=== PATIENT | female | born 1985 | race Caucasian/White ===

== ENCOUNTER → 2022-09-07 13:00 | Outpatient (BNVA) | payer OTHER, SELFPAY | PROVIDERS: Family Provider Family Medicine; PCP Family Medicine; Visit Provider Clinical Nurse Specialist Adult Health | DX: Z00.00 Encounter for general adult medical examination without abnormal findings (principal) | CPT/HCPCS: 87624 ==

== ENCOUNTER 2023-10-22 09:58 | Outpatient (CLI) | payer OTHER, SELFPAY ==
--- NOTE | 2023-10-22 10:09 | MM_ITS ---
WS: [id number] DIAGNOSTIC BILATERAL DIGITAL BREAST TOMOSYNTHESIS MAMMOGRAPHY WITH CAD HISTORY: Bilateral BR TENDERNESS COMPARISON: None available. TECHNIQUE: Bilateral craniocaudad, mediolateral oblique, and mediolateral views are submitted with to mosynthesis and SM. Spot compression bilateral MLO projections. Computer aided detection utilized. Breast composition: The breasts are heterogeneously dense, which may obscure small masses. Markers ar e placed along the axillary tails in the area of pain. No masses or distortion. Small benign calcific ations in each breast. Bilateral breast ultrasound, limited. Palpable areas and areas of tenderness towards the axillary tails correspond to benign mammary lymph nodes. No masses otherwise identified. IMPRESSION: MM/[place] [id number] BI-RADS: 2-Benign FOLLOW UP: 1 Year Follow-up
== END 2023-10-22 09:59 | disposition home or self-care (01) ==
PROVIDERS: Family Provider Family Medicine; PCP Family Medicine; Visit Provider Nurse Practitioner Family
DX: N64.4 Mastodynia (principal)
CPT/HCPCS: 76642; 77062; G0279

== ENCOUNTER 2024-09-19 22:18 | Observation (INO) | payer BC, SELFPAY ==
[2024-09-19 22:32] VITALS: BP 131/87; PULSE 64; RESP 16; TEMP 36.9; O2SAT 100
--- NOTE | 2024-09-19 22:59 | XRR_ITS ---
PROCEDURE INFORMATION: Exam: XR Chest Exam date and time: 09/19/2024 11:05 PM Age: 38 years old Clinical indication: Chest pressure; Patient HX: Chest pain TECHNIQUE: Imaging protocol: Radiologic exam of the chest. Views: 1 view. COMPARISON: No relevant prior studies available. FINDINGS: Lungs: Mild bibasilar opacities. Pleural spaces: Unremarkable. No pleural effusion. No pneumothorax. Heart/Mediastinum: Unremarkable. No cardiomegaly. Diaphragm: Mild asymmetric elevation of the right hemidiaphragm. Bones/joints: Unremarkable. XR/XR chest 1V portable [id number] IMPRESSION: Mild bibasilar opacities favor atelectasis. Infiltrate considered less likely but not entirely excluded in the correct clinical setting.
--- NOTE | 2024-09-19 22:59 | ECG_ITS ---
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 Measurements Intervals [place] Rate: 68 P: 62 [place]: 162 QRS: 24 QRSD: 94 T: 44 QT: 403 QTc: 430 Interpretive Statements SINUS RHYTHM LOW QRS VOLTAGE IN PRECORDIAL LEADS [QRS DEFLECTION < 1.0 mV IN CHEST LEADS] MODERATE ST DEPRESSION [0.05+ mV ST DEPRESSION] Compared to ECG 04/12/2019 13:11:58 ST (T wave) deviation now present Electronically Signed On 09-20-2024 20:24:18 CEMETERY LABORER by Marissa Anderson M.D. [id number]
[2024-09-19 23:21] LABS: Basophils # 0.1 10^3/uL (0.0-0.1); Basophils % 0.9 %; Eosinophils # 0.3 10^3/uL (0.0-0.8); Eosinophils % 3.7 %; Hematocrit 39.8 % (36-47); Lymphocytes # 2.4 10^3/uL (0.8-4.8); Lymphocytes % 35.2 %; Mean Corpuscular HGB Conc 34.2 g/dL (30-55); Mean Corpuscular Hemoglobin 30.4 pg (27-33); Mean Corpuscular Volume 88.8 fl (85-98); Mean Platelet Volume 10.3 fL (7.4-10.4); Monocytes # 0.7 10^3/uL (0.2-0.9); Monocytes % 10.3 %; Neutrophils # 3.39 10^3/uL (1.8-7.7); Neutrophils % 49.8 %; Nucleated Red Blood Cells % 0 %; Platelet Count 218 10^3/cmm (157-399); Red Blood Count 4.48 10^6/uL (3.85-5.65); White Blood Count 6.81 10^3/uL (3.29-11.43)
[2024-09-19 23:38] LABS: Troponin(5th) Baseline 17 ng/L (0-10)
[2024-09-19] MEDS: sodium chloride 0.9% 1,000 ML 999 ML IV (23:41)
[2024-09-19 23:42] LABS: HCG Qualitative Urine. Negative (Negative)
[2024-09-19 23:45] LABS: Bilirubin Urine Negative (Negative); Blood Urine 1+ (Negative); Glucose Urine UA Negative (Normal); Ketones Urine Negative (Negative); Leukocyte Esterase Urine Negative (Negative); Nitrate Urine Negative (Negative); Protein Urine Negative (Negative); Specific Gravity, Urine 1.005 (1.005-1.030); Urine Appearance Clear (CLEAR); Urine Color Yellow (Yellow); Urobilinogen Urine 0.2 mg/dL (Negative)
[2024-09-19 23:47] LABS: Add Urine Microscopic? YES; Bacteria Urine None Seen /hpf; Hyaline Casts Urine 0-4 /lpf; Squamous Epithelial Cell Urine 0-5 /hpf (0-5); WBC Urine 0-5 /hpf (0-5)
[2024-09-19 23:53] LABS: Amphetamines Screen Urine Negative (Negative); Barbiturates Screen Urine Negative (Negative); Benzodiazepines Screen Urine Negative (Negative); Cocaine Screen Urine Negative (Negative); Opiate Screen Urine Negative (Negative); PCP Screen Urine Negative (Negative); THC Screen Urine Negative (Negative)
[2024-09-19 23:54] LABS: Alanine Aminotransferase 27 U/L (0-33); Albumin Level 4.8 g/dL (3.5-5.2); Alkaline Phosphatase 62 U/L (35-105); Anion Gap 13.6 (5-19); Aspartate Amino Transferase 23 U/L (0-32); Blood Urea Nitrogen 13 mg/dL (6-20); Calcium 9.3 mg/dL (8.5-10.5); Carbon Dioxide 26 mmol/L (22-29); Chloride 104 mmol/L (98-107); Creatinine Clr Calc Pharmacy 82.4928; Globulin 2.3 g/dL (1.3-4.6); Glomerular Filtration Rate 61.7 mL/min (90-130); Glucose 122 mg/dL (65-115); Lipase 37 U/L (13-60); NT Pro B Type Natriuretic Pept 50 pg/mL (0-125); Osmolality Calculated 291 mOsm/kg (285-295); Potassium 3.6 mmol/L (3.5-5.1); Sodium 140 mmol/L (136-145); Total Bilirubin 0.5 mg/dL (0.15-1.2); Total Protein 7.1 g/dL (6.6-8.7)
[2024-09-20] VITALS (98 sets, daily range): BP systolic 84–131; BP diastolic 50–91; PULSE 52–88; RESP 11–26; TEMP 36.6–37.4; O2SAT 93–100; BMI 25.8
--- NOTE | 2024-09-20 00:20 | ED_ITS ---
Documented by User: ALLAN Davison 09/20/24 00:28 HPI - Chest Pain 2 General: Chief Complaint: Chest Pain Stated Complaint: cp irratic heart rate arm numb jaw pain Time Seen by Provider: 09/19/24 22:59 History of Present Illness: Tiki Zambrano is a 38-year-old female that presents to the emergency department with an episode of tachycardia that lasted approximately 60 seconds. Patient reports that she was sitting on the couch and felt a twinge of pain both anterior posterior chest wall on the left. She went to stretch and then she developed an arrhythmia?potation's with a heart rate in the 150s. Patient states it lasted again for approximately 60 seconds and went away. Short time later she did read developed another episode but this was much shorter. Patient denies any nausea vomiting fever or chills but does report ongoing chest pain at this time. Patient reports she had 1 episode like this during her second . She underwent 2 weeks of monitoring but nothing came of it. She also had an episode where she was bradycardic for sustained period of time. She underwent cardiac evaluation at that time to and all was normal. Associated symptoms: Reports palpitations; Deny abdominal pain, dyspnea, fever(s), nausea or vomiting Related Data Home Medications Medication Instructions Recorded Confirmed levonorgestrel 21 mcg/24 hr (up to intrauterine 09/07/22 09/07/22 8 years) 52 mg intrauterine device (Mirena) Allergies Allergy/AdvReac Type Severity Reaction Status Date / Time No Known Allergies Allergy Verified 09/19/24 22:37 Review of Systems 2 General: Reports: 10 or more systems reviewed and unremarkable except in HPI and below Const: Reports: fatigue; Denies: fever(s), chills, change in appetite, change in weight or malaise Card: Reports: chest pain, palpitations, irregular heart rhythm and dyspnea on exertion; Denies: edema, orthopnea or leg pain with exertion Resp: Denies: dyspnea, productive cough, non-productive cough, wheezing, stridor or chest congestion GI: Denies: abdominal pain, nausea, vomiting, dysphagia, diarrhea, constipation, bloating, GI cramping or hematochezia : Denies: flank pain, difficulty voiding, dysuria, urinary frequency, urinary urgency, urinary hesitancy, oliguria or hematuria Musc: Reports: back pain and other (Upper extremity heaviness and fatigue); Denies: neck pain, extremity pain, joint pain, joint swelling, joint redness, joint warmth or muscle weakness Neuro: Denies: headache(s), numbness in extremities, weakness in extremities, sensory changes, lack of coordination, difficulty walking, frequent falls, dizziness, confusion, Slurred speech present, difficulty communicating thoughts, seizure-like activity or involuntary movements Endo: Denies: polyuria, polydipsia or tired all the time Arley/Lymph: Denies: easy bruising or easy bleeding PFSH ED 2 PFSH: Family History (Updated 09/07/22 @ 12:46 by Elfego Garcia NP) Unknown Diabetes aunt type 1 diabetes Father Hypertension Denies family history of Cancer Physical Exam 2 Const: COMMON NORMALS: no acute distress, patient oriented x3 and alert G ENERAL APPEARANCE: cooperative ORIENTATION/CONSCIOUSNESS: Yes awake, Yes oriented to person, Yes oriented to place and Yes oriented to time HENMT: COMMON NORMALS: normocephalic and atraumatic HEAD & SCALP: n ormocephalic and atraumatic FACE & SINUS: normal facial exam MOUTH: Normal oral and palatal mucosa present THROAT: posterior oropharynx normal Eye: COMMON NORMALS: Equal, round and reactive pupils present, EOMs intact bilaterally, conjunctivae normal and no scleral icterus GENERAL EYE: a ppearance normal, both eyes and all related structures ALIGNMENT: Yes alignment normal PERIORBITAL: periorbital findings normal CONJUNCTIVA: Yes conjunctivae normal PUPIL: Yes Equal, round and reactive pupils present Neck/C-Spine: COMMON NORMALS: full ROM GENERAL: Yes normal visual inspection Lymph: LYMPHATIC: no lymphadenopathy noted Chest: COMMONS NORMALS: normal inspection of the chest Breast/axilla inspection: Yes no chest deformity, asymmetry, normal contours, no nodules, masses, tenderness Resp: COMMON NORMALS: normal respiratory effort, No retractions, No use of accessory muscles and clear to auscultation bilaterally EFFORT & INSPECTION: Yes able to speak in complete sentences and Yes symmetric chest movement A USCULTATION: clear to auscultation bilaterally Cardio: COMMON NORMALS: regular rate, regular rhythm and Peripheral pulses 2+ throughout RATE: regular rate RHYTHM: regular rhythm PERIPHERAL PULSES: Peripheral pulses 2+ throughout GI: COMMON NORMALS: Normal to inspection, nondistended, normoactive bowel sounds present, Soft to palpation, non-tender and No hepatosplenomegaly present INSPECTION: Yes normal to inspection AUSCULTATION: Yes normoactive bowel sounds PALPATION: Yes Soft to palpation and Yes No hepatosplenomegaly present RECTAL EXAM: deferred Extremity: COMMON NORMALS: normal to inspection GENERAL: Yes normal exam except as noted Neuro: COMMON NORMALS: patient oriented x3 SENSORIUM/ORIENTATION: Yes alert, Yes oriented to person, Yes oriented to place and Yes oriented to time CRANIAL NERVES: Yes CN normal except as noted Psych: COMMON NORMALS: mental status grossly normal, Normal thought process present, cooperative, activity/motor behavior normal, denies homicidal ideation and denies suicidal ideation THOUGHT PROCESS: Normal thought process present Skin: COMMON NORMALS: no rashes or lesions noted, no wounds and turgor normal GENERAL SKIN EXAM: no rashes or lesions noted and turgor normal Course 2 Vital Signs: Vital signs: Vital Signs Temperature 98.5 F 09/19/24 22:32 Pulse Rate 70 09/20/24 01:36 Respiratory Rate 14 09/20/24 01:36 Blood Pressure 122/91 09/20/24 01:36 Pulse Oximetry 100 09/20/24 01:36 Oxygen Delivery Me thod Room Air 09/20/24 01:58 MDM - Chest Pain Medical Decision Making Patient is a 38-year-old female that presents to the emergency department with left-sided anterior and posterior chest pain. She notes that a few days ago she had some pain in her TMJ joint. She has had a pinching sensation in her back from scoliosis. She developed this chest pain when she was stretching this evening. With this chest pain came tachycardia. Here in the emergency department we did a cardiac evaluation that included laboratory studies, chest x-ray, EKG. EKG revealed normal sinus rhythm. No ectopy, ST elevation or abnormal T wave inversion. Her heart rates in the 60s. She is on room air and satting at 100% and her blood pressure is normal. Her initial troponin was mildly elevated at 17. There is a 2-hour delta pending at this time. Her BNP is 50 which is normal. She has no leukocytosis or anemias. She has no electrolyte abnormalities. Her anion gap is 13 and her BUN is normal. She is not , does not have a urinary tract infection and has a negative urine drug screen. I reviewed the case with Dr. Patterson. At this time of any transition care to him. Patient and family updated. Lab Data 09/19/24 23:10 09/19/24 23:10 Radiology Impressions Chest X-Ray 09/19/24 22:59 IMPRESSION: Mild bibasilar opacities favor atelectasis. Infiltrate considered less likely but not entirely excluded in the correct clinical setting. Laboratory Results WBC 6.81 10^3/uL (3.29-11.43) 09/19/24 23:10 RBC 4.48 10^6/uL (3.85-5.65) 09/19/24 23:10 Hgb 13.60 g/dL (11.27-16.99) 09/19/24 23:10 Hct 39.8 % (36-47) 09/19/24 23:10 MCV 88.8 fl (85-98) 09/19/24 23:10 MCH 30.4 pg (27-33) 09/19/24 23:10 MCHC 34.2 g/dL (30-55) 09/19/24 23:10 RDW 12.0 % (12.1-15.1) L 09/19/24 23:10 Plt Count 218 10^3/cmm (157-399) 09/19/24 23:10 MPV 10.3 fL (7.4-10.4) 09/19/24 23:10 Neut % (Auto) 49.8 % 09/19/24 23:10 Lymph % (Auto) 35.2 % 09/19/24 23:10 [place] % (Auto) 10.3 % 09/19/24 23:10 Eos % (Auto) 3.7 % 09/19/24 23:10 Baso % (Auto) 0.9 % 09/19/24 23:10 Neut # (Auto) 3.39 10^3/uL (1.8-7.7) 09/19/24 23:10 Lymph # (Auto) 2.4 10^3/uL (0.8-4.8) 09/19/24 23:10 [place] # (Auto) 0.7 10^3/uL (0.2-0.9) 09/19/24 23:10 Eos # (Auto) 0.3 10^3/uL (0.0-0.8) 09/19/24 23:10 Baso # (Auto) 0.1 10^3/uL (0.0-0.1) 09/19/24 23:10 Nucleated RBC % (auto) 0 % 09/19/24 23:10 Nucleated RBCs # 0.0 /100WBC 09/19/24 23:10 D-Dimer 0.40 ug/mLFEU (0-0.59) 09/20/24 00:42 Sodium 140 mmol/L (136-145) 09/19/24 23:10 Potassium 3.6 mmol/L (3.5-5.1) 09/19/24 23:10 Chloride 104 mmol/L (98-107) 09/19/24 23:10 Carbon Dioxide 26 mmol/L (22-29) 09/19/24 23:10 Anion Gap 13.6 (5-19) 09/19/24 23:10 BUN 13 mg/dL (6-20) 09/19/24 23:10 Creatinine 1.0 mg/dL (0.5-0.9) H 09/19/24 23:10 GFR Calculation 61.7 mL/min (90-130) L 09/19/24 23:10 Glucose 122 mg/dL (65-115) H 09/19/24 23:10 Calculated Osmolality 291 mOsm/kg (285-295) 09/19/24 23:10 Calcium 9.3 mg/dL (8.5-10.5) 09/19/24 23:10 Total Bilirubin 0.5 mg/dL (0.15-1.2) 09/19/24 23:10 AST 23 U/L (0-32) 09/19/24 23:10 ALT 27 U/L (0-33) 09/19/24 23:10 Alkaline Phosphatase 62 U/L (35-105) 09/19/24 23:10 Creatine Kinase 107 U/L (26-192) 09/19/24 23:10 Troponin T Baseline 17 ng/L (0-10) H 09/19/24 23:10 Troponin T 120 Minute 65.17 ng/L (0-10) H 09/20/24 00:42 Delta Troponin T 48.17 ABS# (0-10) H* 09/20/24 00:42 NT-Pro-B Natriuret Pep 50 pg/mL (0-125) 09/19/24 23:10 Total Protein 7.1 g/dL (6.6-8.7) 09/19/24 23:10 Albumin 4.8 g/dL (3.5-5.2) 09/19/24 23:10 Globulin 2.3 g/dL (1.3-4.6) 09/19/24 23:10 Lipase 37 U/L (13-60) 09/19/24 23:10 HCG, Qual Negative (Negative) 09/19/24 23:35 Urine Color Yellow (Yellow) 09/19/24 23:35 Urine Appearance Clear (CLEAR) 09/19/24 23:35 Urine pH 7.0 (5-7) 09/19/24 23:35 Ur Specific Walker 1.005 (1.005-1.030) 09/19/24 23:35 Urine Protein Negative (Negative) 09/19/24 23:35 Urine Glucose (UA) Negative (Normal) 09/19/24 23:35 Urine Ketones Negative (Negative) 09/19/24 23:35 Urine Blood 1+ (Negative) A 09/19/24 23:35 Urine Nitrate Negative (Negative) 09/19/24 23:35 Urine Bilirubin Negative (Negative) 09/19/24 23:35 Urine Urobilinogen 0.2 mg/dL (Negative) 09/19/24 23:35 Ur Leukocyte Esterase Negative (Negative) 09/19/24 23:35 Urine RBC 3-5 /hpf (0-2) 09/19/24 23:35 Urine WBC 0-5 /hpf (0-5) 09/19/24 23:35 Ur Squamous Epith Cells 0-5 /hpf (0-5) 09/19/24 23:35 Amorphous Sediment Not Reportable 09/19/24 23:35 Urine Bacteria None seen /hpf (NONE) 09/19/24 23:35 Hyaline Casts 0-4 /lpf H 09/19/24 23:35 Urine Opiates Screen Negative ng/mL (Negative) 09/19/24 23:35 Ur Barbiturates Screen Negative ng/mL (Negative) 09/19/24 23:35 Ur Phencyclidine Scrn Negative ng/mL (Negative) 09/19/24 23:35 Ur Amphetamines Screen Negative ng/mL (Negative) 09/19/24 23:35 U Benzodiazepines Scrn Negative ng/mL (Negative) 09/19/24 23:35 Urine Cocaine Screen Negative ng/mL (Negative) 09/19/24 23:35 U Marijuana (THC) Screen Negative ng/mL (Negative) 09/19/24 23:35 All radiology interpretation(s) finalized by discharge Discharge Plan Discharge Patient Disposition: Admitted As Inpatient Admit Provider: Lan Chua Clinical Impression: Chest pain, Non-ST elevated myocardial infarction (non-STEMI) Condition: Fair Coding Level of Care Code ED Stove Fitter for Chg Fwd Documented by User: Kevin Patterson DO 09/20/24 02:11 HPI - Chest Pain 2 General: Chief Complaint: Chest Pain Stated Complaint: cp irratic heart rate arm numb jaw pain Time Seen by Provider: 09/19/24 22:59 Related Data Home Medications Medication Instructions Recorded Confirmed levonorgestrel 21 mcg/24 hr (up to intrauterine 09/07/22 09/07/22 8 years) 52 mg intrauterine device (Mirena) Allergies Allergy/AdvReac Type Severity Reaction Status Date / Time No Known Allergies Allergy Verified 09/19/24 22:37 PFS ED 2 PFSH: Family History (Updated 09/07/22 @ 12:46 by Elfego Garcia NP) Unknown Diabetes aunt type 1 diabetes Father Hypertension Denies family history of Cancer Course 2 Vital Signs: Vital signs: Vital Signs Temperature 98.5 F 09/19/24 22:32 Pulse Rate 70 09/20/24 01:36 Respiratory Rate 14 09/20/24 01:36 Blood Pressure 122/91 09/20/24 01:36 Pulse Oximetry 100 09/20/24 01:36 Oxygen Delivery Me thod Room Air 09/20/24 01:58 MDM - Chest Pain Medical Decision Making Patient is a 38-year-old female that presents to the emergency department with left-sided anterior and posterior chest pain. She notes that a few days ago she had some pain in her TMJ joint. She has had a pinching sensation in her back from scoliosis. She developed this chest pain when she was stretching this evening. With this chest pain came tachycardia. Here in the emergency department we did a cardiac evaluation that included laboratory studies, chest x-ray, EKG. EKG revealed normal sinus rhythm. No ectopy, ST elevation or abnormal T wave inversion. Her heart rates in the 60s. She is on room air and satting at 100% and her blood pressure is normal. Her initial troponin was mildly elevated at 17. There is a 2-hour delta pending at this time. Her BNP is 50 which is normal. She has no leukocytosis or anemias. She has no electrolyte abnormalities. Her anion gap is 13 and her BUN is normal. She is not , does not have a urinary tract infection and has a negative urine drug screen. I reviewed the case with Dr. Patterson. At this time of any transition care to him. Patient and family updated. Patient checked out to me at shift change. I have seen the patient as well. Delta troponin is 48, which is concerning. Discussed with hospitalist. Will go ahead and give Lovenox Plavix and aspirin. She will be admitted. Cardiology consultation in the morning. Further testing. Recommendations for now her D- dimer as well. She will go to the [facility]. Lab Data 09/19/24 23:10 09/19/24 23:10 Radiology Impressions Chest X-Ray 09/19/24 22:59 IMPRESSION: Mild bibasilar opacities favor atelectasis. Infiltrate considered less likely but not entirely excluded in the correct clinical setting. Laboratory Results WBC 6.81 10^3/uL (3.29-11.43) 09/19/24 23:10 RBC 4.48 10^6/uL (3.85-5.65) 09/19/24 23:10 Hgb 13.60 g/dL (11.27-16.99) 09/19/24 23:10 Hct 39.8 % (36-47) 09/19/24 23:10 MCV 88.8 fl (85-98) 09/19/24 23:10 MCH 30.4 pg (27-33) 09/19/24 23:10 MCHC 34.2 g/dL (30-55) 09/19/24 23:10 RDW 12.0 % (12.1-15.1) L 09/19/24 23:10 Plt Count 218 10^3/cmm (157-399) 09/19/24 23:10 MPV 10.3 fL (7.4-10.4) 09/19/24 23:10 Neut % (Auto) 49.8 % 09/19/24 23:10 Lymph % (Auto) 35.2 % 09/19/24 23:10 [place] % (Auto) 10.3 % 09/19/24 23:10 Eos % (Auto) 3.7 % 09/19/24 23:10 Baso % (Auto) 0.9 % 09/19/24 23:10 Neut # (Auto) 3.39 10^3/uL (1.8-7.7) 09/19/24 23:10 Lymph # (Auto) 2.4 10^3/uL (0.8-4.8) 09/19/24 23:10 [place] # (Auto) 0.7 10^3/uL (0.2-0.9) 09/19/24 23:10 Eos # (Auto) 0.3 10^3/uL (0.0-0.8) 09/19/24 23:10 Baso # (Auto) 0.1 10^3/uL (0.0-0.1) 09/19/24 23:10 Nucleated RBC % (auto) 0 % 09/19/24 23:10 Nucleated RBCs # 0.0 /100WBC 09/19/24 23:10 D-Dimer 0.40 ug/mLFEU (0-0.59) 09/20/24 00:42 Sodium 140 mmol/L (136-145) 09/19/24 23:10 Potassium 3.6 mmol/L (3.5-5.1) 09/19/24 23:10 Chloride 104 mmol/L (98-107) 09/19/24 23:10 Carbon Dioxide 26 mmol/L (22-29) 09/19/24 23:10 Anion Gap 13.6 (5-19) 09/19/24 23:10 BUN 13 mg/dL (6-20) 09/19/24 23:10 Creatinine 1.0 mg/dL (0.5-0.9) H 09/19/24 23:10 GFR Calculation 61.7 mL/min (90-130) L 09/19/24 23:10 Glucose 122 mg/dL (65-115) H 09/19/24 23:10 Calculated Osmolality 291 mOsm/kg (285-295) 09/19/24 23:10 Calcium 9.3 mg/dL (8.5-10.5) 09/19/24 23:10 Total Bilirubin 0.5 mg/dL (0.15-1.2) 09/19/24 23:10 AST 23 U/L (0-32) 09/19/24 23:10 ALT 27 U/L (0-33) 09/19/24 23:10 Alkaline Phosphatase 62 U/L (35-105) 09/19/24 23:10 Creatine Kinase 107 U/L (26-192) 09/19/24 23:10 Troponin T Baseline 17 ng/L (0-10) H 09/19/24 23:10 Troponin T 120 Minute 65.17 ng/L (0-10) H 09/20/24 00:42 Delta Troponin T 48.17 ABS# (0-10) H* 09/20/24 00:42 NT-Pro-B Natriuret Pep 50 pg/mL (0-125) 09/19/24 23:10 Total Protein 7.1 g/dL (6.6-8.7) 09/19/24 23:10 Albumin 4.8 g/dL (3.5-5.2) 09/19/24 23:10 Globulin 2.3 g/dL (1.3-4.6) 09/19/24 23:10 Lipase 37 U/L (13-60) 09/19/24 23:10 HCG, Qual Negative (Negative) 09/19/24 23:35 Urine Color Yellow (Yellow) 09/19/24 23:35 Urine Appearance Clear (CLEAR) 09/19/24 23:35 Urine pH 7.0 (5-7) 09/19/24 23:35 Ur Specific Walker 1.005 (1.005-1.030) 09/19/24 23:35 Urine Protein Negative (Negative) 09/19/24 23:35 Urine Glucose (UA) Negative (Normal) 09/19/24 23:35 Urine Ketones Negative (Negative) 09/19/24 23:35 Urine Blood 1+ (Negative) A 09/19/24 23:35 Urine Nitrate Negative (Negative) 09/19/24 23:35 Urine Bilirubin Negative (Negative) 09/19/24 23:35 Urine Urobilinogen 0.2 mg/dL (Negative) 09/19/24 23:35 Ur Leukocyte Esterase Negative (Negative) 09/19/24 23:35 Urine RBC 3-5 /hpf (0-2) 09/19/24 23:35 Urine WBC 0-5 /hpf (0-5) 09/19/24 23:35 Ur Squamous Epith Cells 0-5 /hpf (0-5) 09/19/24 23:35 Amorphous Sediment Not Reportable 09/19/24 23:35 Urine Bacteria None seen /hpf (NONE) 09/19/24 23:35 Hyaline Casts 0-4 /lpf H 09/19/24 23:35 Urine Opiates Screen Negative ng/mL (Negative) 09/19/24 23:35 Ur Barbiturates Screen Negative ng/mL (Negative) 09/19/24 23:35 Ur Phencyclidine Scrn Negative ng/mL (Negative) 09/19/24 23:35 Ur Amphetamines Screen Negative ng/mL (Negative) 09/19/24 23:35 U Benzodiazepines Scrn Negative ng/mL (Negative) 09/19/24 23:35 Urine Cocaine Screen Negative ng/mL (Negative) 09/19/24 23:35 U Marijuana (THC) Screen Negative ng/mL (Negative) 09/19/24 23:35 Discharge Plan Discharge Patient Disposition: Admitted As Inpatient Admit Provider: Lan Chua Clinical Impression: Chest pain, Non-ST elevated myocardial infarction (non-STEMI) Condition: Fair Coding Level of Care Code ED Stove Fitter for Emanuel Shaikh
[2024-09-20 00:58] LABS: Creatine Phosphokinase 107 U/L (26-192)
[2024-09-20 01:03] LABS: Troponin 5 2HR 65.17 ng/L (0-10)
[2024-09-20 01:04] LABS: Troponin 5 2HR Delta 48.17 ABS# (0-10)
[2024-09-20] MEDS: aspirin 325 mg Tablet PO (01:33)
[2024-09-20] MEDS: enoxaparin 80 mg/0.8 mL Syringe 70 MG SUBCUT (01:33)
[2024-09-20] MEDS: ondansetron 2 mg/ML SDV 2 mL 4 MG IVP ×2 (01:33→07:22)
[2024-09-20] MEDS: clopidogrel 300 mg Tablet PO (01:33)
[2024-09-20] MEDS: morphine 4 mg/mL SDV 1 mL IVP (01:33)
--- NOTE | 2024-09-20 01:44 | ECG_ITS ---
[employer] 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 Measurements Intervals [place] Rate: 63 P: 56 ND: 158 QRS: 17 QRSD: 93 T: 10 QT: 423 QTc: 433 Interpretive Statements SINUS RHYTHM WITH OCCASIONAL ECTOPIC PREMATURE COMPLEXES LOW QRS VOLTAGE IN PRECORDIAL LEADS [QRS DEFLECTION < 1.0 mV IN CHEST LEADS] Compared to ECG 09/19/2024 22:23:06 ST (T wave) deviation no longer present Electronically Signed On 09-20-2024 21:05:32 RESIDENTIAL PEST CONTROL TECHNICIAN by Marissa Anderson M.D. [email or web address]
--- NOTE | 2024-09-20 02:28 | P.HP_ITS ---
Providers/Chief Complaint 2 Admitting Physician: Lan Chua MD Chief Complaint: cp irratic heart rate arm numb jaw pain History of Present Illness Tiki Zambrano is a 38 year old female who does not carry significant past medical history presented to the hospital with chief complaint of chest pain. Patient is stating that her symptoms started around 9 to 10:30 PM when she was watching television, describing her chest pain as burning sensation which was followed by feeling of muscle getting tense in her back and her neck area. No vomiting, diaphoresis or significant shortness of breath. Patient has not noticed any recent fever. No runny nose or runny eyes. No recent social stressors. Does not drink alcohol on daily basis. Non-smoker. In the ER her CBC BMP unremarkable D-dimer unremarkable, EKG showing sinus rhythm x-ray showing atelectasis, she is doing well on room air with no chest pain at the time of my evaluation, she had significant delta troponin hence non- STEMI/ACS protocol initiated echo requested, drug screen negative Review of Systems 2 Const: Denies: fever(s) Eyes: Denies: change in vision ENMT: Denies: throat pain Card: Reports: chest pain Resp: Denies: dyspnea GI: Denies: abdominal pain Medications/Allergies Home Medications Medication Instructions Recorded Confirmed Last Taken Type levonorgestrel 21 mcg/24 hr (up to intrauterine 09/07/22 09/07/22 Unknown History 8 years) 52 mg intrauterine device (Mirena) Allergies Allergy/AdvReac Type Severity Reaction Status Date / Time No Known Allergies Allergy Verified 09/19/24 22:37 PFSH Acute 2 PFSH: Medical History (Updated 09/20/24 @ 05:01 by Lan Chua MD) No pertinent past medical history Family History (Updated 09/07/22 @ 12:46 by Elfego Garcia NP) Unknown Diabetes aunt type 1 diabetes Father Hypertension Denies family history of Cancer Vitals/I&O/Wt Last Vital Signs Temp 98.4 F 09/20/24 02:08 Pulse 81 09/20/24 02:08 Resp 16 09/20/24 02:08 BP 131/88 09/20/24 02:08 Pulse Ox 98 09/20/24 02:08 O2 Del Method Room Air 09/20/24 02:08 Weight last 48 hrs Weight 77.111 kg Weight 77.111 kg Physical Exam 2 Narrative: Awake and alert Chest pain-free Pleasant cooperative Euvolemic Hemodynamically stable Nonfocal neuroexam S1, S2 Currently on room air Patient has tense neck muscles on palpation, Nonfocal neuroexam GCS 15 AOx3 Data 09/19/24 23:10 09/19/24 23:10 A&P Assessment and plan (1) Chest pain: (2) Non-ST elevated myocardial infarction (non-STEMI): Plan Atypical chest pain EKG showing sinus rhythm No active chest pain Hemodynamically stable Patient is stating that she coronary disease runs in the family, her mother's dad in 50s, mother's brother also in his 50s secondary to heart disease Patient does not have any diabetes or hypertension Drug screen negative D-dimer unremarkable Requested echo Will keep her on therapeutic Lovenox I am not able to explain her delta troponin, she may need cardiology consultation on Saturday, please consult cardiology in the morning, she may need a cardiac stress test on Saturday if her echo does not show any wall motion abnormality I will keep her on cardiac diet aspirin, Plavix on therapeutic Lovenox Full code Attestations 2 Medical Necessity Statement*: Continue medical management Diagnoses Chest pain R07.9 Non-ST elevated myocardial infarction (non-STEMI) I21.4
[2024-09-20] MEDS: lidocaine 2% viscous 15 ML, aluminum-mag hydrox-simethicon 30 ML, sucralfate oral liq 1 GM PO (05:30)
[2024-09-20 05:58] LABS: Anion Gap 13.1 (5-19); Blood Urea Nitrogen 10 mg/dL (6-20); Calcium 8.5 mg/dL (8.5-10.5); Carbon Dioxide 25 mmol/L (22-29); Chloride 108 mmol/L (98-107); Creatinine Clr Calc Pharmacy 117.8468; Glomerular Filtration Rate 93.2 mL/min (90-130); Glucose 89 mg/dL (65-115); Magnesium 2.4 mg/dL (1.7-2.3); Osmolality Calculated 293 mOsm/kg (285-295); Potassium 4.1 mmol/L (3.5-5.1); Sodium 142 mmol/L (136-145)
[2024-09-20 06:05] LABS: Chol HDL Ratio 4.07 mg/dL (0.0-4.40); Cholesterol 171 mg/dL (0-200); HDL Cholesterol 42 mg/dL (60-100); LDL Cholesterol Calculated 114 mg/dL (50-129); Thyroid Stimulating Hormone 5.77 uIU/mL (0.27-4.20); Triglycerides 75 mg/dL (0-150); VLDL Cholestrol Calculation 15 mg/dL (0-30)
[2024-09-20 06:10] LABS: Estmated Average Glucose 94; Hemoglobin A1C 4.9 % (4.0-6.0)
--- NOTE | 2024-09-20 06:12 | ECG_ITS ---
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 Measurements Intervals [place] Rate: 57 P: 62 MD: 162 QRS: 19 QRSD: 96 T: 26 QT: 433 QTc: 422 Interpretive Statements SINUS BRADYCARDIA LOW QRS VOLTAGE IN PRECORDIAL LEADS [QRS DEFLECTION < 1.0 mV IN CHEST LEADS] POSSIBLE RIGHT VENTRICULAR CONDUCTION DELAY [RSR (QR) IN V1/V2] Compared to ECG 09/20/2024 01:44:42 Sinus rhythm no longer present Electronically Signed On 09-20-2024 21:05:37 [employer] by Marissa Anderson M.D. [email or web address]
--- NOTE | 2024-09-20 07:16 | USCV_ITS ---
Tiki Zambrano Age: 38 Gender: F : 1985 Exam Date: 09/20/2024 07:34 Ordering Phys: Lan Chua MD Technologist: Camilo Zamorano Exam Location: [facility] Indication: elevated trop BP: 116 / 67 HR: 61 Rhythm: Sinus Technical Quality: Adequate MEASUREMENTS (Male / Female) Normal Values 2D ECHO LV Diastolic Diameter PLAX 4.2 cm 4.2 - 5.9 / 3.9 - 5.3 cm IVS Diastolic Thickness 0.8 cm 0.6 - 1.0 / 0.6 - 0.9 cm IVS Systolic Thickness 1.3 cm LVPW Diastolic Thickness 1.3 cm 0.6 - 1.0 / 0.6 - 0.9 cm LVPW Systolic Thickness 1.9 cm LVOT Diameter 2.1 cm LV Ejection Fraction 2D Teich 66.6 % LV Ejection Fraction MOD 4C 63.3 % LV Ejection Fraction MOD 2C 66.2 % LV Ejection Fraction 2C AL 67.4 % LA Diameter 3.0 cm RA Systolic Volume 4C AL 47.3 ml RA Systolic Volume 4C MOD 48.3 ml LA Sys Volume AL 39.4 cm cubed LA Sys Volume Index AL 20.3 cm cubed/m squared Aorta at Sinotubular Diameter 2.0 cm IVC Diameter 2.0 cm M-MODE LA Ao Ratio MM 1.2 AV Cusp Separation MM 2.0 cm DOPPLER AV Peak Velocity 118.0 cm/s LVOT Peak Velocity 107.0 cm/s AV Area Cont Eq vti 3.2 cm squared AV Area Cont Eq pk 3.1 cm squared MV Peak Velocity 77.0 cm/s MV Area PHT 4.6 cm squared Mitral E to A Ratio 1.2 TV Peak Velocity 213.0 cm/s TR Peak Velocity 226.0 cm/s TR Peak Gradient 20.4 mmHg TR Mean Velocity 183.0 cm/s TR Mean Gradient 13.8 mmHg TR Velocity Time Integral 79.5 cm PV Peak Velocity 82.0 cm/s RV Ejection Time 0.3 s FINDINGS Left Ventricle Normal LV size and ejection fraction of 63%. Relative hypokinesia of the septum and the anteroseptal segments Right Ventricle The right ventricle is normal in size and function. Right Atrium The right atrium is normal in size. Left Atrium The left atrium is normal in size. Mitral Valve No gross abnormalities notedtrace mitral valve regurgitation. Aortic Valve No gross abnormalities noted Tricuspid Valve Trace tricuspid valve regurgitation. Pulmonic Valve No gross abnormalities noted Pericardium Normal pericardium without effusion. Aorta Normal aortic annulus size. IVC Normal inferior vena cava. CONCLUSIONS Normal LV size and ejection fraction of 63%. Relative hypokinesia of the septum and the anteroseptal segments. Trace of mitral and tricuspid regurgitation Estimated pulmonary artery peak systolic pressure within normal limits There is no pericardial effusion. There are no intracardiac masses. No similar previous studies are available for comparison Dr Marissa Anderson MD [facility] (Electronically Signed) Final Date: 20 September 2024 09:16 S
[2024-09-20] MEDS: morphine IR 15 mg Tablet PO (07:18)
[2024-09-20] MEDS: nitroglycerin 1 gm/inch oint Pkt 1 INCH TOPICAL (07:31)
[2024-09-20] MEDS: clopidogrel 75 mg Tablet PO (08:24)
[2024-09-20] MEDS: aspirin 81 mg EC Tablet PO (08:24)
[2024-09-20] MEDS: pantoprazole DR 40 mg Tablet PO ×2 (08:24→17:39)
--- NOTE | 2024-09-20 09:20 | PM.CONSULT ---
Providers/Reason For Consult Consulting Physician/Specialty*: Timothy Anderson MD/cardiology Reason for Consult*: Patient with chest pain and elevated troponin T Requesting Physician: Dr. Chua/Dr Hamilton Mosqueda Attending Physician: Beata Mosqueda MD History of Present Illness History of Present Illness Tiki Zambrano is a 38 year old female The patient is a 38-year-old female presenting with a prolonged episode of chest pain. This patient apparently was in her baseline state of health up until 9:30 PM yesterday evening while she was watching television, all of a sudden, started having pain in the upper substernal region, radiated to the back between the shoulder blades, to the back of both arms, to the neck and to the jaw. She had associated palpitation where the heart rate went up to 140. Pain rated as 8 out of 10 .The symptoms were accompanied by transient shortness of breath and nausea. The the initial episode lasted over approximately 15 minutes. The patient reported similar heart rate increases during , but these were not associated with the described pain. Upon arrival at the emergency department, the severe pain subsided slightly but persisted, and morphine administration was not initiated until after a second troponin test around midnight. The patient denied experiencing diaphoresis during the episodes. She reports ongoing intermittent pain while on medication post-emergency visit. There is a family history of heart conditions, including high cholesterol and arrhythmias in her father and maternal grandfather and uncle. The patient denies having high blood pressure, diabetes, or a history of myocardial infarction herself. She has been abstaining from alcohol for over two and a half months and does not smoke. No history for any previous cardiac illness. Her youngest child is 5 years old and currently she is stays at home taking care of the kids. 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 Review of Systems Narrative: CONSTITUTIONAL: No fever or chills. EYES: No blurring of vision or other visual disturbances lately. ENT: No hoarseness of voice, auditory disturbances or sore throat. CARDIOVASCULAR: As mentioned above. RESPIRATORY: No significant cough. GASTROINTESTINAL: No hematemesis or melena. GENITOURINARY: No dysuria or hematuria. INTEGUMENTARY: No skin rashes or history of skin cancer. NEURO: No transient ischemic attacks or amaurosis. PSYCHIATRIC: No history of psychosis or major depression. HEMATOLOGIC: No bleeding disorders or significant anemia. ENDOCRINE: No history of polyuria or polydipsia. MUSCULOSKELETAL: No recent joint pain or swelling. ALLERGY/IMMUNOLOGY: As mentioned above. Medications/Allergies Home Medications Medication Instructions Recorded Confirmed Last Taken Type levonorgestrel 21 mcg/24 hr (up to 1 device intrauterine .[id number] 09/07/22 09/20/24 Unknown History 8 years) 52 mg intrauterine device (Mirena) Allergies Allergy/AdvReac Type Severity Reaction Status Date / Time No Known Allergies Allergy Verified 09/19/24 22:37 Current Medications Generic Name Dose Route Start Last Admin Trade Name Freq PRN Reason Stop Dose Admin Aspirin 81 mg 09/20/24 09:00 09/20/24 08:24 Aspirin 81 Mg Ec Tablet PO 81 mg DAILY LESTER Administration Clopidogrel Bisulfate 75 mg 09/20/24 09:00 09/20/24 08:24 Clopidogrel 75 Mg Tablet PO 75 mg DAILY LESTER Administration Morphine Sulfate 15 mg 09/20/24 02:28 09/20/24 07:18 Morphine Ir 15 Mg Tablet PO 15 mg Q6H PRN Administration MODERATE PAIN Nitroglycerin 1 inch 09/20/24 07:30 09/20/24 07:31 Nitroglycerin 1 Gm/Inch Oint Pkt TOPICAL 1 inch Q6H LESTER Administration Ondansetron HCl 4 mg 09/20/24 02:28 09/20/24 07:22 Ondansetron 2 Mg/Ml Sdv 2 Ml IVP 4 mg Q6H PRN Administration NAUSEA AND VOMITING Pantoprazole Sodium 40 mg 09/20/24 09:00 09/20/24 08:[address] 40 Mg Tablet PO 40 mg BID LESTER Administration PFSH Acute PFSH: Medical History No pertinent past medical history Family History Unknown Diabetes aunt type 1 diabetes Father Hypertension Denies family history of Cancer Vitals/I&O/Wt Last Vital Signs Temp 98.4 F 09/20/24 07:27 Pulse 65 09/20/24 07:31 Resp 16 09/20/24 07:27 BP 98/61 09/20/24 07:31 Pulse Ox 98 09/20/24 07:27 O2 Del Method Room Air 09/20/24 07:27 09/19/24 09/20/24 09/20/24 22:59 06:59 14:59 Intake Total 260 / 260 Balance 260 / 260 Weight last 48 hrs Weight 170 lb Weight 170 lb Weight 170 lb Physical Exam Narrative: GENERAL: The patient is alert and oriented times three. Not in any acute distress. HEENT: No significant pallor, icterus or lymphadenopathy.Oral cavity: There are no mucous membrane lesions. NECK: Trachea appears to be central. No masses noted. No JVD or thyromegaly appreciated. RESPIRATORY: Chest is symmetrical. No intercostals muscle retraction or any accessory muscle activation. There is no chest wall tenderness. Breath sounds are heard bilaterally. No rales or rhonchi heard. No evidence of any consolidation. BREASTS: Deferred. HEART: The heart sounds are normal. No S3 or S4. No significant murmurs. No pericardial rub ABDOMEN: No vessel pulsations or distention. No tenderness. No organomegaly appreciated. Bowel sounds are normally heard. : Deferred. RECTAL: Deferred. LYMPHATIC: No lymphadenopathy noted in the neck. EXTREMITIES: No edema or cyanosis. No clubbing. MUSCULOSKELETAL: No acute joint deformities or swelling SKIN: There are no significant rashes or ecchymosis NEUROPSYCHIATRIC: The patient is alert and oriented x3. Appears to be in a good mood. No tremors or rigidity noted. Data 09/19/24 23:10 09/20/24 05:16 Other Labs: Laboratory Last Values WBC 6.81 10^3/uL (3.29-11.43) 09/19/24 23:10 RBC 4.48 10^6/uL (3.85-5.65) 09/19/24 23:10 Hgb 13.60 g/dL (11.27-16.99) 09/19/24 23:10 Hct 39.8 % (36-47) 09/19/24 23:10 MCV 88.8 fl (85-98) 09/19/24 23:10 MCH 30.4 pg (27-33) 09/19/24 23:10 MCHC 34.2 g/dL (30-55) 09/19/24 23:10 RDW 12.0 % (12.1-15.1) L 09/19/24 23:10 Plt Count 218 10^3/cmm (157-399) 09/19/24 23:10 MPV 10.3 fL (7.4-10.4) 09/19/24 23:10 Neut % (Auto) 49.8 % 09/19/24 23:10 Lymph % (Auto) 35.2 % 09/19/24 23:10 [place] % (Auto) 10.3 % 09/19/24 23:10 Eos % (Auto) 3.7 % 09/19/24 23:10 Baso % (Auto) 0.9 % 09/19/24 23:10 Neut # (Auto) 3.39 10^3/uL (1.8-7.7) 09/19/24 23:10 Lymph # (Auto) 2.4 10^3/uL (0.8-4.8) 09/19/24 23:10 [place] # (Auto) 0.7 10^3/uL (0.2-0.9) 09/19/24 23:10 Eos # (Auto) 0.3 10^3/uL (0.0-0.8) 09/19/24 23:10 Baso # (Auto) 0.1 10^3/uL (0.0-0.1) 09/19/24 23:10 Nucleated RBC % (auto) 0 % 09/19/24 23:10 Nucleated RBCs # 0.0 /100WBC 09/19/24 23:10 D-Dimer 0.40 ug/mLFEU (0-0.59) 09/20/24 00:42 Sodium 142 mmol/L (136-145) 09/20/24 05:16 Potassium 4.1 mmol/L (3.5-5.1) 09/20/24 05:16 Chloride 108 mmol/L (98-107) H 09/20/24 05:16 Carbon Dioxide 25 mmol/L (22-29) 09/20/24 05:16 Anion Gap 13.1 (5-19) 09/20/24 05:16 BUN 10 mg/dL (6-20) 09/20/24 05:16 Creatinine 0.7 mg/dL (0.5-0.9) 09/20/24 05:16 GFR Calculation 93.2 mL/min (90-130) 09/20/24 05:16 Glucose 89 mg/dL (65-115) 09/20/24 05:16 Estimat Average Glucose 94 09/20/24 05:16 Hemoglobin A1c 4.9 % (4.0-6.0) 09/20/24 05:16 Calculated Osmolality 293 mOsm/kg (285-295) 09/20/24 05:16 Calcium 8.5 mg/dL (8.5-10.5) 09/20/24 05:16 Magnesium 2.4 mg/dL (1.7-2.3) H 09/20/24 05:16 Total Bilirubin 0.5 mg/dL (0.15-1.2) 09/19/24 23:10 AST 23 U/L (0-32) 09/19/24 23:10 ALT 27 U/L (0-33) 09/19/24 23:10 Alkaline Phosphatase 62 U/L (35-105) 09/19/24 23:10 Creatine Kinase 107 U/L (26-192) 09/19/24 23:10 Troponin T Baseline 17 ng/L (0-10) H 09/19/24 23:10 Troponin T 120 Minute 65.17 ng/L (0-10) H 09/20/24 00:42 Delta Troponin T 48.17 ABS# (0-10) H* 09/20/24 00:42 Troponin T Hi Sens 6Hr 534.0 ng/L (0-10) H 09/20/24 05:16 Troponin T Hi Sens 6Hr Delta 517.0 ng/L (0-12) H* 09/20/24 05:16 NT-Pro-B Natriuret Pep 50 pg/mL (0-125) 09/19/24 23:10 Total Protein 7.1 g/dL (6.6-8.7) 09/19/24 23:10 Albumin 4.8 g/dL (3.5-5.2) 09/19/24 23:10 Globulin 2.3 g/dL (1.3-4.6) 09/19/24 23:10 Triglycerides 75 mg/dL (0-150) 09/20/24 05:16 Cholesterol 171 mg/dL (0-200) 09/20/24 05:16 LDL Cholesterol, Calc 114 mg/dL (50-129) 09/20/24 05:16 Total VLDL Cholesterol 15 mg/dL (0-30) 09/20/24 05:16 HDL Cholesterol 42 mg/dL (60-100) L 09/20/24 05:16 Cholesterol/HDL Ratio 4.07 mg/dL (0.0-4.40) 09/20/24 05:16 Lipase 37 U/L (13-60) 09/19/24 23:10 TSH 5.77 uIU/mL (0.27-4.20) H 09/20/24 05:16 HCG, Qual Negative (Negative) 09/19/24 23:35 Urine Color Yellow (Yellow) 09/19/24 23:35 Urine Appearance Clear (CLEAR) 09/19/24 23:35 Urine pH 7.0 (5-7) 09/19/24 23:35 Ur Specific [place] 1.005 (1.005-1.030) 09/19/24 23:35 Urine Protein Negative (Negative) 09/19/24 23:35 Urine Glucose (UA) Negative (Normal) 09/19/24 23:35 Urine Ketones Negative (Negative) 09/19/24 23:35 Urine Blood 1+ (Negative) A 09/19/24 23:35 Urine Nitrate Negative (Negative) 09/19/24 23:35 Urine Bilirubin Negative (Negative) 09/19/24 23:35 Urine Urobilinogen 0.2 mg/dL (Negative) 09/19/24 23:35 Ur Leukocyte Esterase Negative (Negative) 09/19/24 23:35 Urine RBC 3-5 /hpf (0-2) 09/19/24 23:35 Urine WBC 0-5 /hpf (0-5) 09/19/24 23:35 Ur Squamous Epith Cells 0-5 /hpf (0-5) 09/19/24 23:35 Amorphous Sediment Not Reportable 09/19/24 23:35 Urine Bacteria None seen /hpf (NONE) 09/19/24 23:35 Hyaline Casts 0-4 /lpf H 09/19/24 23:35 Urine Opiates Screen Negative ng/mL (Negative) 09/19/24 23:35 Ur Barbiturates Screen Negative ng/mL (Negative) 09/19/24 23:35 Ur Phencyclidine Scrn Negative ng/mL (Negative) 09/19/24 23:35 Ur Amphetamines Screen Negative ng/mL (Negative) 09/19/24 23:35 U Benzodiazepines Scrn Negative ng/mL (Negative) 09/19/24 23:35 Urine Cocaine Screen Negative ng/mL (Negative) 09/19/24 23:35 U Marijuana (THC) Screen Negative ng/mL (Negative) 09/19/24 23:35 EKG 1: My Interpretation: Sinus bradycardia with rate of 56 bpm. Poor R wave progression. Incomplete right bundle branch block. Other data: Echocardiogram from today Normal LV size and ejection fraction of 63%. Relative hypokinesia of the septum and the anteroseptal segments. Trace of mitral and tricuspid regurgitation Estimated pulmonary artery peak systolic pressure within normal limits There is no pericardial effusion. There are no intracardiac masses. No similar previous studies are available for comparison A&P Assessment and plan (1) Recurrent chest pain: Patient is episodes of chest pain, may suggest unstable angina. Her EKG is unremarkable. Hemodynamically she seems to be fairly stable. No significant arrhythmias on the monitor. (2) Non-ST elevated myocardial infarction (non-STEMI): The patient to present with a baseline troponin T of 17. She has a 2-hour delta of 48 and a 6-hour delta of 517. Her clinical features are consistent with a non-ST elevation myocardial infarction. The EKG changes are very nonspecific. Her echocardiogram shows some wall motion abnormalities may suggest ischemia in the distribution of the left artery descending artery. This needs to be further evaluated. (3) Tachycardia: Patient had a heart rate in the 140s based on the available monitor-the wristwatch. Has not had any significant tacky arrhythmias on the monitor while being in the hospital. This need to be closely watched for. Plan At this point, the patient will be treated with aspirin, Plavix, subcu Lovenox, low-dose of beta-rosie, if the blood pressure tolerates and careful IV hydration. She may benefit from an early cardiac catheterization to further evaluate the coronary status and decide on further management. Patient on the clinical progress, and the results of the above, further recommendations will be made Thank you for the opportunity to evaluate this patient and make these recommendations. Coding Level of Care Code 82324 Diagnoses Recurrent chest pain R07.9 Non-ST elevated myocardial infarction (non-STEMI) I21.4 Tachycardia R00.0
--- NOTE | 2024-09-20 09:35 | PC.NURSE ---
Dr. Anderson gave verbal orders to give Sodium Chloride at 75 ml/Hr.
[2024-09-20] MEDS: sodium chloride 0.9% 1,000 ML 75 ML IV ×2 (10:18→20:22)
[2024-09-20 11:00] LABS: Erythrocyte Sedimentation Rate 3 mm/hr (0-15)
[2024-09-20 11:10] LABS: Iron 60 ug/dL (37-145); Percent Saturation 21.2 % (20-50); Total Iron Binding Capacity 282 mcg/dl; Unsaturated Iron Binding 222 ug/dL (112-347)
[2024-09-20 11:25] LABS: Vitamin B12 601 pg/mL (232-1245)
--- NOTE | 2024-09-20 13:13 | PC.NURSE ---
Called Dr. Anderson about Lovenox for patient. Dr. Anderson stated to hold the lovenox. Informed Dr. Anderson patient did receive 70 mg dose at 0133 on 09/20/2024
--- NOTE | 2024-09-20 13:41 | P.PN_ITS ---
Subjective 2 Subjective: Admitted overnight. H&P and labs appreciated. Today morning examination patient lying comfortably in bed. She did have mild chest pain later today morning for which she was started on nitro patch. Seen with family at bedside. She otherwise remained comfortable. Patient states otherwise she has been living a healthy lifestyle, exercise 3 times a week. Denies any recent chest pain at rest or with exertion other than yesterday when she had retrosternal chest pain radiating to bilateral shoulder with arm heaviness, neck heaviness along with episode of nausea with tachycardia. She did have further episode of chest pain earlier today morning. Denies personal history of smoking, personal history of miscarriages. Does give family history of myocardial infarction in grandparents, high blood pressure along with arrhythmia and father. 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 Also states she was mildly NISA positive in the past. Denies any history of recent illness, runny nose, cough, recent vaccination. Vitals/I&O/Wt Last Vital Signs Temp 99.3 F 09/20/24 11:32 Pulse 82 09/20/24 11:32 Resp 18 09/20/24 11:32 BP 102/63 09/20/24 11:32 Pulse Ox 95 09/20/24 11:32 O2 Del Method Room Air 09/20/24 11:32 09/19/24 09/20/24 09/20/24 22:59 06:59 14:59 Intake Total 260 / 260 Output Total 300 / 300 Balance 260 / 260 -300 / -300 Weight last 48 hrs Weight 77.111 kg Weight 77.111 kg Weight 77.111 kg Physical Exam 2 Narrative: General: No acute distress, AO x3 HEENT: PERRLA, pupils bilaterally equal and reactive Chest: Normal vesicular breath sounds, no added sounds, equal good air entry bilaterally CVS: S1-S2 regular, no murmurs, no tachycardia, no gallops, no rubs Abdomen: Soft, nontender, no organomegaly, bowel sounds present Neuro: No focal deficits, no facial deformity, AO x3, power 5/5 in all limbs Data 09/19/24 23:10 09/20/24 05:16 A&P Assessment and plan (1) Chest pain: (2) Non-ST elevated myocardial infarction (non-STEMI): Plan Chest pain: Non-ST elevation NC: 6 of troponin around 400. Patient did have mild chest pain earlier today morning. Currently chest pain- free. Cardiology consulted. Plan for cardiac angiogram later in the day. NPO. Continue with aspirin, Plavix, statin. Appreciate echocardiogram for normal EF with concerns for regional wall motion abnormality. Continue with full dose Lovenox 1 mg/kg body weight every 12 hourly. Given young age with no typical risk factors for now we will check ESR, CRP, respiratory viral panel, NISA panel. Full code N.p.o. Full dose Lovenox will be sufficient for DVT prophylaxis Protonix for PUD prophylaxis Attestations 2 Medical Necessity Statement*: Requires further hospitalization for management of non-ST elevation NC in a young female requiring cardiac angiogram Diagnoses Chest pain R07.9 Non-ST elevated myocardial infarction (non-STEMI) I21.4
[2024-09-20 13:54] LABS: Adenovirus Not Detected (NOT DETECT); Chlamydia Pneumoniae Not Detected (NOT DETECT); Coronavirus 229E,HKU1,NL63,OC4 Not Detected (NOT DETECT); Human Metapneumovirus Not Detected (NOT DETECT); Human Rhinovirus/Enterovirus Not Detected (NOT DETECT); Influenza A Not Detected (NOT DETECT); Influenza A H1 Not Detected (NOT DETECT); Influenza A H1-2009 Not Detected (NOT DETECT); Influenza A H3 Not Detected (NOT DETECT); Influenza B Not Detected (NOT DETECT); Mycoplasma Pneumoniae Not Detected (NOT DETECT); Parainfluenza Virus Type 1 Not Detected (NOT DETECT); Parainfluenza Virus Type 2 Not Detected (NOT DETECT); Parainfluenza Virus Type 3 Not Detected (NOT DETECT); Parainfluenza Virus Type 4 Not Detected (NOT DETECT); Respiratory Syncytial Virus A Not Detected (NOT DETECT); Respiratory Syncytial Virus B Not Detected (NOT DETECT); SARS-COV-2 Not Detected (NOT DETECT)
--- NOTE | 2024-09-20 14:25 | XACV_ITS ---
Exam Room: 2 Ht: 173 cm Wt: 77 kg BSA: 1.94 m2 Gender: Female : 1985 Any Known Allergies: No known allergies Exam Priority: Routine Procedure(s): Procedure Description: Diagnostic procedure Procedure Description: Left Heart Catheterization Procedure Description: Left ventriculography Procedure Description: Coronary Angiography Justin GAMBOA; Diagnostic Cath Status: Urgent Diagnostic Findings * The left main, is a medium caliber vessel with no significant stenotic lesions. * The left and descending artery is a medium caliber vessel which appears to taper off towards the LV apex. No significant stenotic lesions were noted.. * The left circumflex artery is a medium caliber vessel which also was found to have no significant stenotic lesions. * The right coronary artery is a medium caliber dominant vessel with no significant stenotic lesions. Conclusions 1. 38-year-old white female with no significant past medical history, presenting with rather acute onset of chest pain with elevated troponin T. Cardiac catheterization was recommended to further evaluate the coronary status and decide on further management. Patient underwent left heart catheterization with left and right coronary angiogram and LV angiogram today. The findings are as follows. 2. 1. No significant obstructive coronary artery disease. 2. Normal LV size with mild hypokinesia of the anteroapical region. LVEDP of 20 mmHg. LV ejection fraction of 50.%. Interventional RX Recommendation: none Diagnostic RX Recommendation: medical therapy and/or counseling LV EDP: 20 mmHg Ventriculography Ejection Fraction: 50.0 % Left Ventriculography Findings: * The LV gram was performed in the QUILES projection. The LV cavity appears to be of normal size. There is mild hypokinesia of the anteroapical region. No filling defects are noted. No severe mitral valve prolapse or mitral regurgitation. The LVEDP was 20 mmHg. LV ejection fraction was 50%.. Pressures Phase:Rest AO : 92 / 66 ( 79 ) @ 3:10:00 PM 88 / 67 ( 78 ) @ 3:14:00 PM 122 / 80 ( 99 ) @ 3:19:00 PM 129 / 73 ( 95 ) @ 3:19:00 PM LV : 132 / -2 / 23 @ 3:18:00 PM 141 / 11 / 40 @ 3:19:00 PM 143 / 11 / 40 @ 3:19:00 PM Valves Phase:DefaultPhase AV : 21.0 @ 3:27:38 PM AV Mean Gradient: 11.0 @ 3:27:38 PM Clinical Evaluation EBL: 5mL-10mL Procedural Details Procedure Consent Obtained. Admit Source: In Patient. Current Diagnosis : NSTEMI. Pre-Procedure Time Out. Identified patient by full name and date of as verbalized by the patient/guarantor. Does the consent match the physician's order: Yes. Accurate & Complete Informed Consent: Yes. Inpatient/Outpatient History & Physical on Chart: Yes. If H&P is completed, is and addenduem needed: Yes; If yes, is the addendum complete: N/A. Visualize and Verify Site with Patient/Guarantor: N/A. Relevant Radiology Images available: N/A. Pre-op teaching completed and patient verbalized understanding. The risks, benefits, and alternatives of sedation and/or procedure were discussed by physician. The patient agrees to continue. Procedure started. [facility] Clinical Fraility Score: 2: Well. Watch Leader Indications: New Onset Angina. Chest Pain Symptom Assessment: Typical Angina Symptoms. Cardiovascular Instability: Yes, if yes, Persistant Ischemic Symptoms. Correct patient, site and procedure confirmed by cath team. Current diagnosis: NSTEMI. PERRLA. Strong, equal hand ship's cook bilaterally. Lungs clear x 5 lobes. IV Site on Arrival: 20 gauge in the right anticubital. IV Fluids: 0.9% NaCl at KVO. 200 mL infused prior to production laborer. Pre Procedural Pulses: right radial was 2+. Pre Procedural Pulses: bilateral dorsalis pedis was 2+. Oxygen started at 2liters/min via nasal canula. right groin was prepped with chloroprep then draped in the usual sterile fashion. right radial was prepped with chloroprep then draped in the usual sterile fashion. Physician notified. Baseline sample Acquired. HR: 74 BPM. Physician arrived. Physician scrubbed in. Immediate Pre-Procedure Time Out. Correct Patient: Yes; Correct Procedure: Yes; Correct Site: Yes; Correct Patient Position: Yes; Correct Supplies: Yes; Dried Flammable Prep: Yes; Blood Products Available: N/A;. Lidocaine 1% infiltrated to the right radial. Arterial access obtained. A 5 pashto Rigo catheter in over wire. Multiple views taken of left coronary artery. Catheter redirected to the RCA. Multiple views taken of right coronary artery. Catheter removed over the exchange wire. A 5 pashto Angled Pig catheter in over wire. EDP Sample taken: LV 132/-3,23; HR: 88 BPM; SpO2: 100%. Catheter advanced across the LV. LV gram performed in QUILES @ 10 mL/second for a total of 30 mL. EDP Sample taken: LV 141/11,40; HR: 89 BPM; SpO2: 100%. Pullback taken: LV 143/11,40; AO 122/80(99); Mean: 11mmHg, Peak to Peak: 21mmHg, SEP: 26sec/min; HR: 90 BPM; SpO2: 100%. Catheter removed over the exchange wire. Physician scrubbed out. Patient's family updated. A TR Band was successful obtaining hemostatsis at the Right Radial artery insertion site. Post Procedure: Pulses reassessed and unchanged. PERRLA. Strong, equal hand ship's cook bilaterally. No VTE prophylaxis required. Medication's Wasted: Lidocaine 1% = 18 mL. Medication's Wasted: Other = Benadryl 25 mg. Medication's Wasted: Other = Fentanyl 25 mcg. Medication's Wasted: Nitro = 49.8 mg. Medication's Wasted: Other = Versed 1 mg. Total IV fluids: 272 mL. Post-op diagnosis: Normal Coronaries, Cardiomyopathy, Takotsubo. Complications: none. Estimated blood loss: 5mL-10mL. Responsiveness - Normal response to verbal stimuli; alert and oriented, PERRLA. Airway - Unaffected, no intervention required; spontaneous ventilation. Circulation: W/N/L, pulses unchanged. Nausea/Vomiting: No. Procedure completed. Patient transferred by wheelchair to 1st floor. Vital chart was stopped. Access Site Site: Right Radial artery Sheath Size: 6 Fr Hemostasis Method: TR Band Hemostasis Success: Successful Procedure Medications Start: 2:58 PM Stop: 2:58 PM Medication: Benadryl Amount: 25 mg Route: I.V. Start: 2:59 PM Stop: 2:59 PM Medication: Versed Amount: 2 mg Route: I.V. Start: 3:04 PM Stop: 3:04 PM Medication: 0.9% Saline Amount: 250 ml Route: I.V. bolus Start: 3:08 PM Stop: 3:08 PM Medication: Verapamil Amount: 5 mg Route: I.A. Start: 3:08 PM Stop: 3:08 PM Medication: Nitrogylcerin Amount: 200 mcg Route: I.A. Start: 3:10 PM Stop: 3:10 PM Medication: Heparin Amount: 5000 units Route: I.V. Start: 3:18 PM Stop: 3:18 PM Medication: Versed Amount: 1 mg Route: I.V. Start: 3:20 PM Stop: 3:20 PM Medication: Fentanyl Amount: 25 mcg Route: I.V. I, the attending physician, have reviewed and verified all procedure medications. Yes, all medications given per verbal order History/Risk Factors Hypertension: No Dyslipidemia: No Peripheral Arterial Disease (PAD): No Myocardial Infarction (IN): No Obesity: No Renal Disease: No Prior Interventions PCI: No CABG: No Valve Surgery: No Report Signatures Finalized by Dr Marissa Anderson MD [facility] on 09/20/2024 08:01 PM
--- NOTE | 2024-09-20 14:53 | W.PM.OPSUD ---
Surgery/Procedure H&P Update DATE OF PROCEDURE: September 20, 2024 DATE H&P PERFORMED: 09/20/24 H&P UPDATE INFORMATION: I have reviewed H&P completed within last 30 days, I have examined patient prior to procedure and No changes to prior documentation PREOP DIAGNOSIS: Possible ASHD PRIMARY INDICATION FOR PROCEDURE: Unstable angina/non-ST elevation myocardial infarction PLANNED PROCEDURE: Left heart catheterization with the coronary angiogram and possible PCI PATIENT REASSESSED PRIOR TO SEDATION, WITH NO CHANGE NOTED: Yes PHYSICAL EXAM: oriented x 3, clear to auscultation bilaterally and regular rate & rhythm AIRWAY EVAL/ANESTHESIA PLAN: normal airway, see other exam findings, ASA III, Monitored Anesthesia, Local Anesthesia, Risks, benefits & alternatives of sedation and/or procedure discussed and Patient agrees to continue as planned
--- NOTE | 2024-09-20 17:02 | PC.NURSE ---
Given report from laborer carpentry dock. Patient arrived in room. Upon this nurse entering room, patient was lying in bed. Neuro checks were good. TR Band is dry intact. Palpable pulse present with no apparent hematoma. Patient able to move hand. Patient is alert and oriented. Vitals taken WNL. Instructed in post cath restrictions, notify staff of bleeding, pain or any abnormal feeling at all.
--- NOTE | 2024-09-20 18:37 | PC.NURSE ---
Dr. Anderson gave verbal orders to stop Lovenox 80 mg, Plavix and start Lovenox 40 mg daily and lisinopril PO 5mg daily.
--- NOTE | 2024-09-20 20:05 | PC.NURSE ---
TR band removal at 2004 3 mls of air was removed with previous shift, on my shift there was 10 mLs of air removed in total, removed 2-3mLs every 15-20 minutes. No hematoma, no bruising noted at this time
[2024-09-20] MEDS: atorvastatin 40 mg Tablet PO (20:21)
[2024-09-21] VITALS: BP 104/58; PULSE 81; RESP 17; TEMP 36.6
[2024-09-21 03:35] LABS: Basophils # 0.1 10^3/uL (0.0-0.1); Basophils % 0.8 %; Eosinophils # 0.2 10^3/uL (0.0-0.8); Hematocrit 34.1 % (36-47); Lymphocytes # 2.7 10^3/uL (0.8-4.8); Lymphocytes % 41.5 %; Mean Corpuscular Hemoglobin 29.4 pg (27-33); Mean Corpuscular Volume 91.9 fl (85-98); Mean Platelet Volume 10.7 fL (7.4-10.4); Monocytes # 0.7 10^3/uL (0.2-0.9); Monocytes % 10.7 %; Neutrophils # 2.83 10^3/uL (1.8-7.7); Neutrophils % 43.8 %; Nucleated Red Blood Cells % 0 %; Platelet Count 168 10^3/cmm (157-399); Red Blood Count 3.71 10^6/uL (3.85-5.65); Red Cell Distribution Width 12.2 % (12.1-15.1); White Blood Count 6.44 10^3/uL (3.29-11.43)
[2024-09-21 04:00] VITALS: BP 117/66; PULSE 64; RESP 18; TEMP 36.5
[2024-09-21 04:00] LABS: Magnesium 2.4 mg/dL (1.7-2.3)
[2024-09-21 04:02] LABS: Alanine Aminotransferase 17 U/L (0-33); Albumin Level 3.6 g/dL (3.5-5.2); Alkaline Phosphatase 47 U/L (35-105); Anion Gap 12.6 (5-19); Aspartate Amino Transferase 25 U/L (0-32); Blood Urea Nitrogen 9 mg/dL (6-20); Calcium 8.3 mg/dL (8.5-10.5); Carbon Dioxide 23 mmol/L (22-29); Chloride 107 mmol/L (98-107); Globulin 2.2 g/dL (1.3-4.6); Glomerular Filtration Rate 111.3 mL/min (90-130); Glucose 81 mg/dL (65-115); Osmolality Calculated 286 mOsm/kg (285-295); Potassium 3.6 mmol/L (3.5-5.1); Sodium 139 mmol/L (136-145); Total Bilirubin 0.7 mg/dL (0.15-1.2); Total Protein 5.8 g/dL (6.6-8.7)
[2024-09-21 05:33] VITALS: PULSE 63
[2024-09-21 07:33] VITALS: BP 116/69; PULSE 68; RESP 21; TEMP 36.8; O2SAT 98
--- NOTE | 2024-09-21 09:06 | PM.PN ---
Subjective Subjective: Patient had the cardiac catheterization yesterday afternoon. She was found to have no obstructive coronary disease. Mild hypokinesia of the anteroapical region was noted. Her features are suggestive of a variant of Takotsubo syndrome. Medications: Medication Review Details: Current Medications Acetaminophen (Acetaminophen 500 Mg Tablet) 500 mg PO Q4H PRN PRN Reason: fever Al Hydrox/Mg Hydrox/Simethicone (Pnxd-Kkm-Drviklgrd-Payal 30 Ml Udc) 30 ml PO Q15M PRN PRN Reason: INDIGESTION Albuterol/Ipratropium (Ipratropium-Albuterol 3 Ml Neb) 3 ml INHALATION Q6H PRN PRN Reason: SHORTNESS OF BREATH Alprazolam (Alprazolam 0.5 Mg Tablet) 0.5 mg PO TID PRN PRN Reason: ANXIETY Aspirin (Aspirin 81 Mg Ec Tablet) 81 mg PO DAILY [facility] Last Admin: 09/20/24 08:24 Dose: 81 mg Atorvastatin Calcium (Atorvastatin 40 Mg Tablet) 40 mg PO BEDTIME [facility] Last Admin: 09/20/24 20:21 Dose: 40 mg Atropine Sulfate (Atropine 1 Mg/Ml Sdv 1 Ml) 0.5 mg IVP PRN PRN PRN Reason: Symptomatic bradycardia Cyclobenzaprine HCl (Cyclobenzaprine 10 Mg Tablet) 5 mg PO TID PRN PRN Reason: MUSCLE SPASMS Enoxaparin Sodium (Enoxaparin 40 Mg/0.4 Ml Syringe) 40 mg SUBCUT Q24H [facility] Fentanyl (Fentanyl 50 Mcg/Ml Inj 2ml) 50 mcg IVP PRN PRN PRN Reason: Prior to sheath removal Sodium Chloride (Sodium Chloride 0.9%) 1,000 mls @ 75 mls/hr IV .[id number] [facility] Last Admin: 09/20/24 20:22 Dose: 75 mls/hr Lisinopril (Lisinopril 5 Mg Tablet) 5 mg PO DAILY [facility] Magnesium Hydroxide (Magnesium Hydroxide 30 Ml Udc) 30 ml PO DAILY PRN PRN Reason: CONSTIPATION Naloxone HCl (Naloxone 0.4 Mg/Ml Sdv) 0.1 mg IVP Q2M PRN PRN Reason: RESPIRATORY RATE < 8/MIN Nitroglycerin (Nitroglycerin 0.4 Mg Sublingual Tablet) 0.4 mg SUBLINGUAL Q5M PRN PRN Reason: CHEST PAIN Ondansetron HCl (Ondansetron 2 Mg/Ml Sdv 2 Ml) 4 mg IVP Q6H PRN PRN Reason: NAUSEA AND VOMITING Last Admin: 09/20/24 07:22 Dose: 4 mg Pantoprazole Sodium (Pantoprazole Dr 40 Mg Tablet) 40 mg PO BID LESTER Last Admin: 09/20/24 17:39 Dose: 40 mg Vitals/I&O/Wt Last Vital Signs Temp 98.3 F 09/21/24 07:33 Pulse 68 09/21/24 07:33 Resp 21 H 09/21/24 07:33 BP 116/69 09/21/24 07:33 Pulse Ox 98 09/21/24 07:33 O2 Del Method Room Air 09/21/24 07:33 09/20/24 09/21/24 09/21/24 22:59 06:59 14:59 Intake Total 1360 / 1360 480 / 1840 Balance 1360 / 1060 480 / 1540 Weight last 48 hrs Weight 190 lb 1.6 oz Weight 170 lb Weight 170 lb Weight 170 lb Physical Exam Narrative: GENERAL: The patient is alert and oriented times three. Not in any acute distress. HEENT: No significant pallor, icterus or lymphadenopathy.Oral cavity: There are no mucous membrane lesions. NECK: Trachea appears to be central. No masses noted. No JVD or thyromegaly appreciated. RESPIRATORY: Chest is symmetrical. No intercostals muscle retraction or any accessory muscle activation. There is no chest wall tenderness. Breath sounds are heard bilaterally. No rales or rhonchi heard. No evidence of any consolidation. BREASTS: Deferred. HEART: The heart sounds are normal. No S3 or S4. No significant murmurs. No pericardial rub ABDOMEN: No vessel pulsations or distention. No tenderness. No organomegaly appreciated. Bowel sounds are normally heard. : Deferred. RECTAL: Deferred. LYMPHATIC: No lymphadenopathy noted in the neck. EXTREMITIES: The radial artery puncture site has no hematoma bleeding. MUSCULOSKELETAL: No acute joint deformities or swelling SKIN: There are no significant rashes or ecchymosis NEUROPSYCHIATRIC: The patient is alert and oriented x3. Appears to be in a good mood. No tremors or rigidity noted. Data 09/21/24 02:43 09/21/24 02:43 Other Labs: Laboratory Last Values WBC 6.44 10^3/uL (3.29-11.43) 09/21/24 02:43 RBC 3.71 10^6/uL (3.85-5.65) L 09/21/24 02:43 Hgb 10.90 g/dL (11.27-16.99) L 09/21/24 02:43 Hct 34.1 % (36-47) L 09/21/24 02:43 MCV 91.9 fl (85-98) 09/21/24 02:43 MCH 29.4 pg (27-33) 09/21/24 02:43 MCHC 32.0 g/dL (30-55) D 09/21/24 02:43 RDW 12.2 % (12.1-15.1) 09/21/24 02:43 Plt Count 168 10^3/cmm (157-399) 09/21/24 02:43 MPV 10.7 fL (7.4-10.4) H 09/21/24 02:43 Neut % (Auto) 43.8 % 09/21/24 02:43 Lymph % (Auto) 41.5 % 09/21/24 02:43 [place] % (Auto) 10.7 % 09/21/24 02:43 Eos % (Auto) 3.0 % 09/21/24 02:43 Baso % (Auto) 0.8 % 09/21/24 02:43 Neut # (Auto) 2.83 10^3/uL (1.8-7.7) 09/21/24 02:43 Lymph # (Auto) 2.7 10^3/uL (0.8-4.8) 09/21/24 02:43 [place] # (Auto) 0.7 10^3/uL (0.2-0.9) 09/21/24 02:43 Eos # (Auto) 0.2 10^3/uL (0.0-0.8) 09/21/24 02:43 Baso # (Auto) 0.1 10^3/uL (0.0-0.1) 09/21/24 02:43 Nucleated RBC % (auto) 0 % 09/21/24 02:43 Nucleated RBCs # 0.0 /100WBC 09/21/24 02:43 ESR 3 mm/hr (0-15) 09/20/24 05:16 D-Dimer 0.40 ug/mLFEU (0-0.59) 09/20/24 00:42 Sodium 139 mmol/L (136-145) 09/21/24 02:43 Potassium 3.6 mmol/L (3.5-5.1) 09/21/24 02:43 Chloride 107 mmol/L (98-107) 09/21/24 02:43 Carbon Dioxide 23 mmol/L (22-29) 09/21/24 02:43 Anion Gap 12.6 (5-19) 09/21/24 02:43 BUN 9 mg/dL (6-20) 09/21/24 02:43 Creatinine 0.6 mg/dL (0.5-0.9) 09/21/24 02:43 GFR Calculation 111.3 mL/min (90-130) 09/21/24 02:43 Glucose 81 mg/dL (65-115) 09/21/24 02:43 Estimat Average Glucose 94 09/20/24 05:16 Hemoglobin A1c 4.9 % (4.0-6.0) 09/20/24 05:16 Calculated Osmolality 286 mOsm/kg (285-295) 09/21/24 02:43 Calcium 8.3 mg/dL (8.5-10.5) L 09/21/24 02:43 Magnesium 2.4 mg/dL (1.7-2.3) H 09/21/24 02:43 Iron 60 ug/dL (37-145) 09/20/24 05:16 TIBC 282 mcg/dl 09/20/24 05:16 % Saturation 21.2 % (20-50) 09/20/24 05:16 Unsat Iron Binding 222 ug/dL (112-347) 09/20/24 05:16 Total Bilirubin 0.7 mg/dL (0.15-1.2) 09/21/24 02:43 AST 25 U/L (0-32) 09/21/24 02:43 ALT 17 U/L (0-33) 09/21/24 02:43 Alkaline Phosphatase 47 U/L (35-105) 09/21/24 02:43 Creatine Kinase 107 U/L (26-192) 09/19/24 23:10 Troponin T Baseline 17 ng/L (0-10) H 09/19/24 23:10 Troponin T 120 Minute 65.17 ng/L (0-10) H 09/20/24 00:42 Delta Troponin T 48.17 ABS# (0-10) H* 09/20/24 00:42 Troponin T Hi Sens 6Hr 534.0 ng/L (0-10) H 09/20/24 05:16 Troponin T Hi Sens 6Hr Delta 517.0 ng/L (0-12) H* 09/20/24 05:16 C-Reactive Protein 3.0 mg/L (0.0-4.9) 09/20/24 05:16 NT-Pro-B Natriuret Pep 50 pg/mL (0-125) 09/19/24 23:10 Total Protein 5.8 g/dL (6.6-8.7) L 09/21/24 02:43 Albumin 3.6 g/dL (3.5-5.2) 09/21/24 02:43 Globulin 2.2 g/dL (1.3-4.6) 09/21/24 02:43 Triglycerides 75 mg/dL (0-150) 09/20/24 05:16 Cholesterol 171 mg/dL (0-200) 09/20/24 05:16 LDL Cholesterol, Calc 114 mg/dL (50-129) 09/20/24 05:16 Total VLDL Cholesterol 15 mg/dL (0-30) 09/20/24 05:16 HDL Cholesterol 42 mg/dL (60-100) L 09/20/24 05:16 Cholesterol/HDL Ratio 4.07 mg/dL (0.0-4.40) 09/20/24 05:16 Lipase 37 U/L (13-60) 09/19/24 23:10 Vitamin B12 601 pg/mL (232-1245) 09/20/24 05:16 Folate 6.0 ng/mL (4.8-37.3) 09/21/24 02:43 TSH 5.77 uIU/mL (0.27-4.20) H 09/20/24 05:16 HCG, Qual Negative (Negative) 09/19/24 23:35 Urine Color Yellow (Yellow) 09/19/24 23:35 Urine Appearance Clear (CLEAR) 09/19/24 23:35 Urine pH 7.0 (5-7) 09/19/24 23:35 Ur Specific [place] 1.005 (1.005-1.030) 09/19/24 23:35 Urine Protein Negative (Negative) 09/19/24 23:35 Urine Glucose (UA) Negative (Normal) 09/19/24 23:35 Urine Ketones Negative (Negative) 09/19/24 23:35 Urine Blood 1+ (Negative) A 09/19/24 23:35 Urine Nitrate Negative (Negative) 09/19/24 23:35 Urine Bilirubin Negative (Negative) 09/19/24 23:35 Urine Urobilinogen 0.2 mg/dL (Negative) 09/19/24 23:35 Ur Leukocyte Esterase Negative (Negative) 09/19/24 23:35 Urine RBC 3-5 /hpf (0-2) 09/19/24 23:35 Urine WBC 0-5 /hpf (0-5) 09/19/24 23:35 Ur Squamous Epith Cells 0-5 /hpf (0-5) 09/19/24 23:35 Amorphous Sediment Not Reportable 09/19/24 23:35 Urine Bacteria None seen /hpf (NONE) 09/19/24 23:35 Hyaline Casts 0-4 /lpf H 09/19/24 23:35 Urine Opiates Screen Negative ng/mL (Negative) 09/19/24 23:35 Ur Barbiturates Screen Negative ng/mL (Negative) 09/19/24 23:35 Ur Phencyclidine Scrn Negative ng/mL (Negative) 09/19/24 23:35 Ur Amphetamines Screen Negative ng/mL (Negative) 09/19/24 23:35 U Benzodiazepines Scrn Negative ng/mL (Negative) 09/19/24 23:35 Urine Cocaine Screen Negative ng/mL (Negative) 09/19/24 23:35 U Marijuana (THC) Screen Negative ng/mL (Negative) 09/19/24 23:35 Adenovirus (PCR) Not detected (NOT DETECT) 09/20/24 11:18 C. pneumoniae DNA (PCR) Not detected (NOT DETECT) 09/20/24 11:18 Coronavirus 229E (PCR) Not detected (NOT DETECT) 09/20/24 11:18 Human Metapneumovir PCR Not detected (NOT DETECT) 09/20/24 11:18 Influenza A (H1) PCR Not detected (NOT DETECT) 09/20/24 11:18 Influ A (H1/09) PCR Not detected (NOT DETECT) 09/20/24 11:18 Influenza A (H3) PCR Not detected (NOT DETECT) 09/20/24 11:18 Influenza Type A (PCR) Not detected (NOT DETECT) 09/20/24 11:18 Influenza Type B (PCR) Not detected (NOT DETECT) 09/20/24 11:18 M. pneumoniae (PCR) Not detected (NOT DETECT) 09/20/24 11:18 Parainfluenza 1 (PCR) Not detected (NOT DETECT) 09/20/24 11:18 Parainfluenza 2 (PCR) Not detected (NOT DETECT) 09/20/24 11:18 Parainfluenza 3 (PCR) Not detected (NOT DETECT) 09/20/24 11:18 Parainfluenza 4 (PCR) Not detected (NOT DETECT) 09/20/24 11:18 RSV Type A (PCR) Not detected (NOT DETECT) 09/20/24 11:18 RSV Type B (PCR) Not detected (NOT DETECT) 09/20/24 11:18 Entero/Rhino (PCR) Not detected (NOT DETECT) 09/20/24 11:18 SARS-CoV-2 (PCR) Not detected (NOT DETECT) 09/20/24 11:18 EKG 1: My Interpretation: Sinus bradycardia with rate of 56 bpm. Poor R wave progression. Incomplete right bundle branch block. Other data: Echocardiogram from today Normal LV size and ejection fraction of 63%. Relative hypokinesia of the septum and the anteroseptal segments. Trace of mitral and tricuspid regurgitation Estimated pulmonary artery peak systolic pressure within normal limits There is no pericardial effusion. There are no intracardiac masses. No similar previous studies are available for comparison A&P Assessment and plan (1) Recurrent chest pain: No significant coronary disease. May continue on the current management (2) Non-ST elevated myocardial infarction (non-STEMI): Most likely this patient has a variant of Takotsubo syndrome. (3) Tachycardia: No documented arrhythmias on the monitor so far. Plan If she continues to remain stable, may be discharged home today. May continue on the current medications. Will be seen back in the clinic by the nurse practitioner in a week. Further medication adjustments will be made at the clinic appointment. Attestations Medical Necessity Statement*: Possible discharge home today Coding Level of Care Code 13790 Diagnoses Recurrent chest pain R07.9 Non-ST elevated myocardial infarction (non-STEMI) I21.4 Tachycardia R00.0
[2024-09-21] MEDS: lisinopril 5 mg Tablet PO (09:37)
[2024-09-21] MEDS: aspirin 81 mg EC Tablet PO (09:37)
[2024-09-21] MEDS: pantoprazole DR 40 mg Tablet PO (09:37)
[2024-09-21 11:08] VITALS: BP 108/65; PULSE 61; RESP 20; TEMP 36.9; O2SAT 98
--- NOTE | 2024-09-21 11:46 | PM.DCS ---
Discharge Providers Date of Admission: 09/20/24 01:24 Date of Discharge: September 21, 2024 Attending Provider at Admission: Lan Chua MD Attending Provider at Discharge: Per Cooper Diagnoses at Discharge Discharge Diagnosis (1) Recurrent chest pain: Status: Acute (2) Non-ST elevated myocardial infarction (non-STEMI): Status: Acute (3) Tachycardia: Status: Acute Reason for Visit Reason for Visit: cp irratic heart rate arm numb jaw pain Hospital Course Hospital Course 38-year-old lady without past medical history was admitted after presenting with chest pain, found to have NSTEMI with troponin levels rising up to 517, was assessed by cardiology, echocardiogram showed EF 63 %, but relative hypokinesia of septum and anteroseptal segments. Trace mitral and tricuspid regurgitation. No effusion. Underwent assessment by coronary angiography which showed no obstructive coronary disease. Consider likely variant of Takotsubo syndrome. Autoimmune studies have been sent out and pending. Please follow-up. She is started on low-dose lisinopril by cardiology with instructions to hold medication in case blood pressure is lower than 100 systolic as her blood pressure does sometimes run on the lower side. Could use nitroglycerin if needed but with similar precaution. She will be establishing with a PCP and is asked to follow-up with cardiology. Physical Exam Narrative: Denies any discomfort. No chest pain or pressure. Feeling well currently. Accompanied by her . Const: COMMON NORMALS: patient oriented x3 and alert GENERAL APPEARANCE: cooperative ORIENTATION/CONSCIOUSNESS: Yes awake HENMT: COMMON NORMALS: oropharynx normal Neck/C-Spine: COMMON NORMALS: no JVD Resp: COMMON NORMALS: normal respiratory effort and clear to auscultation bilaterally AUSCULTATION: clear to auscultation bilaterally Cardio: COMMON NORMALS: no JVD, regular rhythm, S1 normal heart sound present, S2 normal heart sound present and No murmurs present (Cardio) RHYTHM: regular rhythm HEART SOUNDS: S1 normal heart sound present and S2 normal heart sound present GI: COMMON NORMALS: Normal to inspection, nondistended, normoactive bowel sounds present, Soft to palpation and non-tender PALPATION: Yes Soft to palpation Extremity: COMMON NORMALS: no joint enlargement and no pedal edema Neuro: COMMON NORMALS: patient oriented x3 and moves all extremities SENSORIUM/ORIENTATION: Yes alert Skin: COMMON NORMALS: no rashes or lesions noted GENERAL SKIN EXAM: no rashes or lesions noted Discharge Data Studies Completed and Pending Completed Studies During Hospitalization Category Date Time Status [employer] request for service Routine Exams 09/20/24 14:25 Completed XR chest 1V portable [id number] Stat Exams 09/19/24 22:59 Completed CV. echo complete* [id number] Stat Ultrasound 09/20/24 07:16 Completed Pending at discharge Category Date Time Status APOE [Apoliopoprotein E (ApoE) Isofo] Routine Lab 09/20/24 11:48 Received Drug Screen, Urine Routine Lab 09/20/24 02:30 Uncollected MAG [Magnesium] AM LABS Lab 09/22/24 04:00 Ordered MAG [Magnesium] AM LABS Lab 09/23/24 04:00 Ordered [facility] INSA Profile Routine Lab 09/20/24 11:48 Received Radiology Impressions Chest X-Ray 09/19/24 22:59 IMPRESSION: Mild bibasilar opacities favor atelectasis. Infiltrate considered less likely but not entirely excluded in the correct clinical setting. Laboratory Results WBC 6.44 10^3/uL (3.29-11.43) 09/21/24 02:43 RBC 3.71 10^6/uL (3.85-5.65) L 09/21/24 02:43 Hgb 10.90 g/dL (11.27-16.99) L 09/21/24 02:43 Hct 34.1 % (36-47) L 09/21/24 02:43 MCV 91.9 fl (85-98) 09/21/24 02:43 MCH 29.4 pg (27-33) 09/21/24 02:43 MCHC 32.0 g/dL (30-55) D 09/21/24 02:43 RDW 12.2 % (12.1-15.1) 09/21/24 02:43 Plt Count 168 10^3/cmm (157-399) 09/21/24 02:43 MPV 10.7 fL (7.4-10.4) H 09/21/24 02:43 Neut % (Auto) 43.8 % 09/21/24 02:43 Lymph % (Auto) 41.5 % 09/21/24 02:43 [place] % (Auto) 10.7 % 09/21/24 02:43 Eos % (Auto) 3.0 % 09/21/24 02:43 Baso % (Auto) 0.8 % 09/21/24 02:43 Neut # (Auto) 2.83 10^3/uL (1.8-7.7) 09/21/24 02:43 Lymph # (Auto) 2.7 10^3/uL (0.8-4.8) 09/21/24 02:43 [place] # (Auto) 0.7 10^3/uL (0.2-0.9) 09/21/24 02:43 Eos # (Auto) 0.2 10^3/uL (0.0-0.8) 09/21/24 02:43 Baso # (Auto) 0.1 10^3/uL (0.0-0.1) 09/21/24 02:43 Nucleated RBC % (auto) 0 % 09/21/24 02:43 Nucleated RBCs # 0.0 /100WBC 09/21/24 02:43 ESR 3 mm/hr (0-15) 09/20/24 05:16 D-Dimer 0.40 ug/mLFEU (0-0.59) 09/20/24 00:42 Sodium 139 mmol/L (136-145) 09/21/24 02:43 Potassium 3.6 mmol/L (3.5-5.1) 09/21/24 02:43 Chloride 107 mmol/L (98-107) 09/21/24 02:43 Carbon Dioxide 23 mmol/L (22-29) 09/21/24 02:43 Anion Gap 12.6 (5-19) 09/21/24 02:43 BUN 9 mg/dL (6-20) 09/21/24 02:43 Creatinine 0.6 mg/dL (0.5-0.9) 09/21/24 02:43 GFR Calculation 111.3 mL/min (90-130) 09/21/24 02:43 Glucose 81 mg/dL (65-115) 09/21/24 02:43 Estimat Average Glucose 94 09/20/24 05:16 Hemoglobin A1c 4.9 % (4.0-6.0) 09/20/24 05:16 Calculated Osmolality 286 mOsm/kg (285-295) 09/21/24 02:43 Calcium 8.3 mg/dL (8.5-10.5) L 09/21/24 02:43 Magnesium 2.4 mg/dL (1.7-2.3) H 09/21/24 02:43 Iron 60 ug/dL (37-145) 09/20/24 05:16 TIBC 282 mcg/dl 09/20/24 05:16 % Saturation 21.2 % (20-50) 09/20/24 05:16 Unsat Iron Binding 222 ug/dL (112-347) 09/20/24 05:16 Total Bilirubin 0.7 mg/dL (0.15-1.2) 09/21/24 02:43 AST 25 U/L (0-32) 09/21/24 02:43 ALT 17 U/L (0-33) 09/21/24 02:43 Alkaline Phosphatase 47 U/L (35-105) 09/21/24 02:43 Creatine Kinase 107 U/L (26-192) 09/19/24 23:10 Troponin T Baseline 17 ng/L (0-10) H 09/19/24 23:10 Troponin T 120 Minute 65.17 ng/L (0-10) H 09/20/24 00:42 Delta Troponin T 48.17 ABS# (0-10) H* 09/20/24 00:42 Troponin T Hi Sens 6Hr 534.0 ng/L (0-10) H 09/20/24 05:16 Troponin T Hi Sens 6Hr Delta 517.0 ng/L (0-12) H* 09/20/24 05:16 C-Reactive Protein 3.0 mg/L (0.0-4.9) 09/20/24 05:16 NT-Pro-B Natriuret Pep 50 pg/mL (0-125) 09/19/24 23:10 Total Protein 5.8 g/dL (6.6-8.7) L 09/21/24 02:43 Albumin 3.6 g/dL (3.5-5.2) 09/21/24 02:43 Globulin 2.2 g/dL (1.3-4.6) 09/21/24 02:43 Triglycerides 75 mg/dL (0-150) 09/20/24 05:16 Cholesterol 171 mg/dL (0-200) 09/20/24 05:16 LDL Cholesterol, Calc 114 mg/dL (50-129) 09/20/24 05:16 Total VLDL Cholesterol 15 mg/dL (0-30) 09/20/24 05:16 HDL Cholesterol 42 mg/dL (60-100) L 09/20/24 05:16 Cholesterol/HDL Ratio 4.07 mg/dL (0.0-4.40) 09/20/24 05:16 Lipase 37 U/L (13-60) 09/19/24 23:10 Vitamin B12 601 pg/mL (232-1245) 09/20/24 05:16 Folate 6.0 ng/mL (4.8-37.3) 09/21/24 02:43 TSH 5.77 uIU/mL (0.27-4.20) H 09/20/24 05:16 HCG, Qual Negative (Negative) 09/19/24 23:35 Urine Color Yellow (Yellow) 09/19/24 23:35 Urine Appearance Clear (CLEAR) 09/19/24 23:35 Urine pH 7.0 (5-7) 09/19/24 23:35 Ur Specific [place] 1.005 (1.005-1.030) 09/19/24 23:35 Urine Protein Negative (Negative) 09/19/24 23:35 Urine Glucose (UA) Negative (Normal) 09/19/24 23:35 Urine Ketones Negative (Negative) 09/19/24 23:35 Urine Blood 1+ (Negative) A 09/19/24 23:35 Urine Nitrate Negative (Negative) 09/19/24 23:35 Urine Bilirubin Negative (Negative) 09/19/24 23:35 Urine Urobilinogen 0.2 mg/dL (Negative) 09/19/24 23:35 Ur Leukocyte Esterase Negative (Negative) 09/19/24 23:35 Urine RBC 3-5 /hpf (0-2) 09/19/24 23:35 Urine WBC 0-5 /hpf (0-5) 09/19/24 23:35 Ur Squamous Epith Cells 0-5 /hpf (0-5) 09/19/24 23:35 Amorphous Sediment Not Reportable 09/19/24 23:35 Urine Bacteria None seen /hpf (NONE) 09/19/24 23:35 Hyaline Casts 0-4 /lpf H 09/19/24 23:35 Urine Opiates Screen Negative ng/mL (Negative) 09/19/24 23:35 Ur Barbiturates Screen Negative ng/mL (Negative) 09/19/24 23:35 Ur Phencyclidine Scrn Negative ng/mL (Negative) 09/19/24 23:35 Ur Amphetamines Screen Negative ng/mL (Negative) 09/19/24 23:35 U Benzodiazepines Scrn Negative ng/mL (Negative) 09/19/24 23:35 Urine Cocaine Screen Negative ng/mL (Negative) 09/19/24 23:35 U Marijuana (THC) Screen Negative ng/mL (Negative) 09/19/24 23:35 Adenovirus (PCR) Not detected (NOT DETECT) 09/20/24 11:18 C. pneumoniae DNA (PCR) Not detected (NOT DETECT) 09/20/24 11:18 Coronavirus 229E (PCR) Not detected (NOT DETECT) 09/20/24 11:18 Human Metapneumovir PCR Not detected (NOT DETECT) 09/20/24 11:18 Influenza A (H1) PCR Not detected (NOT DETECT) 09/20/24 11:18 Influ A (H1/09) PCR Not detected (NOT DETECT) 09/20/24 11:18 Influenza A (H3) PCR Not detected (NOT DETECT) 09/20/24 11:18 Influenza Type A (PCR) Not detected (NOT DETECT) 09/20/24 11:18 Influenza Type B (PCR) Not detected (NOT DETECT) 09/20/24 11:18 M. pneumoniae (PCR) Not detected (NOT DETECT) 09/20/24 11:18 Parainfluenza 1 (PCR) Not detected (NOT DETECT) 09/20/24 11:18 Parainfluenza 2 (PCR) Not detected (NOT DETECT) 09/20/24 11:18 Parainfluenza 3 (PCR) Not detected (NOT DETECT) 09/20/24 11:18 Parainfluenza 4 (PCR) Not detected (NOT DETECT) 09/20/24 11:18 RSV Type A (PCR) Not detected (NOT DETECT) 09/20/24 11:18 RSV Type B (PCR) Not detected (NOT DETECT) 09/20/24 11:18 Entero/Rhino (PCR) Not detected (NOT DETECT) 11/17/24 11:18 SARS-CoV-2 (PCR) Not detected (NOT DETECT) 09/20/24 11:18 Vitals Last Vital Signs Temp 98.4 F 09/21/24 11:08 Pulse 61 09/21/24 11:08 Resp 20 H 09/21/24 11:08 BP 108/65 09/21/24 11:08 Pulse Ox 98 09/21/24 11:08 O2 Del Method Room Air 09/21/24 11:08 Discharge Plan Discharge Patient Disposition: Home Condition: Fair Prescriptions: New lisinopril 5 mg Tablet 2.5 mg PO DAILY Qty: 45 0RF nitroglycerin 0.4 mg tablet, sublingual 0.4 mg sublingual Q5M PRN (Reason: chest pain) Qty: 25 0RF Rx Instructions: do not exceed 3 doses per episode Continued Mirena 20 mcg/24 hours (7 yrs) 52 mg intrauterine device 1 device intrauterine .[id number] Discharge Orders: Discharge Order (Routine); Ordered 09/21/24 Ordered By: Per Cooper Referrals: Marissa Anderson MD [Physician] - 2 months (After your appointment with Bhakti Palomares you will be scheduled with Dr. Anderson. ) Bhakti Palomares FNP [Nurse Practitioner] - 09/29/24 3:00 pm ( ) Forrest Ortiz MD [Physician] - 4-7 days (We have notified your physician's clinic of the need for a follow-up appointment to be scheduled. If you have not heard from them within the next 2 business days, please call them directly. ) Patient Instructions: Nitroglycerin (By mouth), Lisinopril (By mouth), Chest Pain (DC), Hypotension (GEN), Left Heart Catheterization (DC), Opioid Safety, Post Angiogram Home Care Instructions Activity Restrictions/Additional Instructions: As per electrical & instrumentation supervisor recommendation if you are able to, continue lisinopril. Monitor blood pressures 2-3 times daily, you may take the low-dose lisinopril if your systolic blood pressure is over 100. Do not take the medication and see if systolic blood pressures less than 100. If you experience chest pain, you could take the nitroglycerin, but be aware that nitroglycerin may lower blood pressure further as well. Avoid if your blood pressure is already low. Seek medical attention in case of any bothersome or persistent chest pain, or any other worsening or new concerning symptoms. Discharge Attestations Time Spent in Discharge Care*: greater than 30 min Quality Metrics Clinical Quality Measures [ No reported AMI, CVA or VTE this stay] Coding Level of Care Code 97551 Total time (in minutes) for Discharge: 50 Diagnoses Recurrent chest pain R07.9 Non-ST elevated myocardial infarction (non-STEMI) I21.4 Tachycardia R00.0
[2024-09-21 14:50] VITALS: BP 108/65; PULSE 64; RESP 18; TEMP 37.1; O2SAT 95
[2024-09-21 15:29] LABS: Anti-Double Strand DNA AB 3 IU/mL; Jo-1 Antibody <1.0 NEG AI (<1.0 NEG); SS-B/LA IGG <1.0 NEG AI (<1.0 NEG); Scleroderma Ab(Scl-70) Ab <1.0 NEG AI (<1.0 NEG); Ss-A/Ro Igg 2.8 POS AI (<1.0 NEG)
[2024-09-23 16:26] LABS: SM/RNP Antibodies <1.0 NEG
== END 2024-09-21 14:52 | disposition home or self-care (01) ==
LOC: ER 09-20 01:25 → CSU 09-20 01:37
PROVIDERS: Internal Medicine Cardiovascular Disease; Nurse Practitioner; Student in an Organized Health Care Education/Training Program; Admitting Provider Internal Medicine; Emergency Provider Emergency Medicine; Visit Provider Internal Medicine
DX: I21.4 Non-ST elevation (NSTEMI) myocardial infarction (principal); R00.0 Tachycardia, unspecified; I25.10 Atherosclerotic heart disease of native coronary artery without angina pectoris; E11.9 Type 2 diabetes mellitus without complications; I10 Essential (primary) hypertension
CPT/HCPCS: 36415; 71045; 80048; 80053; 80061; 80306; 81001; 81025; 82542; 82550; 82607; 82746; 83036; 83540; 83550; 83690; 83735; 83880; 84443; 84484; 85025; 85378; 85651; 86140; 86225; 86235; 87486; 87581; 87633; 93005; 93306; 93458; 96361; 96372; 96374; 96375; 96376; 99152; 99285; C1769; C1887; C1894; G0378; J1200; J1644; J1650; J2250; J2270; J2405; J3010; J3490; J7030; Q9967

== ENCOUNTER 2024-10-07 11:25 | Outpatient (CLI) | payer BC, SELFPAY ==
[2024-10-07 12:53] LABS: Free T4 Free Thyroxine 1.02 ng/dL (0.82-1.77); T3 Free 2.8 PG/ML (2.0-4.4); Thyroid Stimulating Hormone 2.73 uIU/mL (0.27-4.20)
== END 2024-10-07 11:26 | disposition home or self-care (01) ==
PROVIDERS: PCP Family Medicine; Visit Provider Nurse Practitioner Family
DX: R79.89 Other specified abnormal findings of blood chemistry (principal)
CPT/HCPCS: 36415; 84439; 84443; 84481

== ENCOUNTER 2024-11-10 11:19 | Outpatient (CLI) | payer BC, SELFPAY ==
--- NOTE | 2024-11-10 11:33 | MM_ITS ---
WS: [id number] BILATERAL 3D TOMOSYNTHESIS DIGITAL SCREENING MAMMOGRAPHY WITH CAD CLINICAL INFORMATION: SCREENING HISTORY: Screening mammogram. No current complaints. COMPARISON: 2022 TECHNIQUE: Bilateral CC and MLO views. FINDINGS: The breasts are composed of heterogeneous fibroglandular density tissue, which can limit the detectio n of small underlying mass lesions. No suspicious mass, asymmetry, calcifications, or architectural d istortion. No evidence of malignancy. A few incidental punctate calcifications. MM/MM [facility] tomosynthesis [id number] IMPRESSION: DENSITY: The breasts are heterogeneously dense, which may obscure small masses. BI-RADS: 2 - Benign FOLLOW UP: 1 Year Follow-up Recommend return to annual screening mammography.
== END 2024-11-10 11:20 | disposition home or self-care (01) ==
LOC: RAD 11:21
PROVIDERS: PCP Family Medicine; Visit Provider Family Medicine
DX: Z12.31 Encounter for screening mammogram for malignant neoplasm of breast (principal); R92.333 Mammographic heterogeneous density, bilateral breasts; R92.323 Mammographic fibroglandular density, bilateral breasts; R92.1 Mammographic calcification found on diagnostic imaging of breast
CPT/HCPCS: 77063; 77067

== ENCOUNTER → 2025-10-25 14:52 | Outpatient (BNVA) | payer BC, SELFPAY | PROVIDERS: PCP Family Medicine; Visit Provider Family Medicine | DX: M35.9 Systemic involvement of connective tissue, unspecified (principal) | CPT/HCPCS: 80053; 80061; 84439; 84443; 85025; 85651; 86038; 86140; 86200; 86215; 86235; 86431; 86812 ==

== ENCOUNTER → 2025-10-26 12:26 | Outpatient (BNVA) | payer BC, SELFPAY | PROVIDERS: PCP Family Medicine; Visit Provider Family Medicine | DX: M35.9 Systemic involvement of connective tissue, unspecified (principal) | CPT/HCPCS: 80053; 80061; 84439; 84443; 86038; 86140; 86200; 86215; 86235; 86431; 86812 ==